=== PATIENT | male | born 1955 | race African-American/Black ===

== ENCOUNTER 2020-09-05 07:26 | Inpatient (IN) | payer OTHER ==
[~2020-09-05] VITALS: Ht 182.9 cm; Wt 59.4 kg
[2020-09-05 07:27] VITALS: BP 123/58
[2020-09-05 08:50] LABS: HEMATOCRIT 29.3 % (42.0-52.0); HEMOGLOBIN 9.4 gm/dL (14.0-18.0); MCH 29.7 pg (26.0-34.0); MCV 92.8 fL (80.0-100.0); RBC 3.16 mil/uL (4.50-6.00); RDW 16.4 % (10.5-14.5); WBC 18.9 thou/uL (4.0-11.0)
[2020-09-05 08:51] LABS: ANION GAP 5 mmol/L (7-16); BUN 51 mg/dL (7-18); CALCIUM 8.6 mg/dL (8.5-10.1); CHLORIDE 98 mmol/L (98-107); CO2 30 mmol/L (21-32); CREATININE 2.5 mg/dL (0.7-1.3); GLUCOSE 165 mg/dL (74-106); POTASSIUM 4.3 mmol/L (3.5-5.1); SODIUM 133 mmol/L (136-145)
[2020-09-05 09:03] LABS: ALBUMIN 1.7 g/dL (3.4-5.0); AMYLASE 59 U/L (25-115); DIRECT BILIRUBIN 0.1 mg/dL (<0.1-0.2); LIPASE 41 U/L (73-393); SGOT 35 U/L (15-37); SGPT 15 U/L (30-65); TOTAL BILIRUBIN 0.3 mg/dL (0.2-1.0); TOTAL PROTEIN 7.1 g/dL (6.4-8.2); TROPONIN-I <0.06 ng/mL (<0.06)
[2020-09-05 09:18] LABS: APTT 30.2 Seconds (24.5-32.8); INR 1.1; PROTIME 12.3 Seconds (9.3-11.4)
[2020-09-05] MEDS ORDERED: LIPITOR20 MG PO ×2 (09:38→09:39)
[2020-09-05] MEDS ORDERED: CARBIDOPA PO (10:26)
[2020-09-05] MEDS ORDERED: LEVODOPA PO (10:26)
--- NOTE | 2020-09-05 10:31 | NUR ---
SPOKE TO , PRAKASH, VERIFIED THAT SHE HAS A DURABLE POWER OF HOSPITALITY JOB TITLES FOR PATIENT. IS OK WITH PATIENT GETTING ADMITTED TO [facility]. UPDATED ON CURRENT CONDITION. VERBALIZED UNDERSTANDING, ENCOURAGED HER TO CALL BACK IF ANY FURTHER QUESTIONS.
[2020-09-05 11:21] LABS: ABSOLUTE NEUTROPHILS 16.3 thou/uL (1.4-8.2); ANISOCYTOSIS SLIGHT; LARGE PLATELETS OCCASIONAL; PLATELET COUNT 356 thou/uL (150-400); PLATELET ESTIMATE NORMAL; POIKILOCYTOSIS SLIGHT
--- NOTE | 2020-09-05 13:26 | EKG ---
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: JAVIER ODOM : 1955 Requested By: Moe Paz Order Number: [id number] MD: Danny Mckeon Measurements Intervals [place] Rate: 87 P: [place]: QRS: 59 QRSD: 79 T: 86 QT: 375 QTc: 451 Interpretive Statements Incomplete analysis due to missing data in precordial lead(s) NSR Low voltage, extremity leads Nonspecific T abnormalities, lateral leads Baseline wander in lead(s) V2 Missing lead(s): V6 No previous ECG available for comparison Electronically Signed On 09-05-2020 13:26:17 COMPETITIVE SHOPPER by Danny Mckeon [email or web address] <ELECTRONICALLY SIGNED> By: Danny Mckeon MD, [facility] 09/05/20 1326 09 0902 Danny Mckeon MD, [facility] /EPI
[2020-09-05 15:47] VITALS: BP 113/57
--- NOTE | 2020-09-05 15:58 | NUR ---
ATTEMPTED TO CALL REPORT, CALLED BUT LINE RANG UNTIL SOMEONE PICKED PHONE UP AND THEN PLACED ME ON HOLD.
--- NOTE | 2020-09-05 16:04 | NUR ---
ATTEMPTED TO CALL REPORT
[2020-09-05 16:25] VITALS: BP 114/58
[2020-09-05 16:47] VITALS: BP 115/64
--- NOTE | 2020-09-05 16:56 | NUR ---
FAXED CLINICAL UPDATES AND NEGATIVE COVID RESULT TO [facility]. [facility] P [phone]; FAX [phone]
--- NOTE | 2020-09-05 19:26 | NUR ---
PT ARRIVED FROM THE ED AT 1705 WITH THE ESCORT OF WINNIE ADDISON. PT ARRIVED TO THE UNIT WITH 0.45NS BAG HANGING WHICH WAS CONTINUED. PT STATED HAVING PAIN LEVEL OF 10 CONTINUOUSLY WITH THE BEST MANAGEABLE PAIN AT THE LEVEL OF 5. ALL WOUNDS WERE TAKEN PICTURE OF BY THIS RN, KERLIX/ABD/SALINE/TAPE WAS UTILIZED. WOUND PICTURES ARE IN THE CHART. PT WAS SET UP FOR DINNER, WAS TURNED, AND PAIN MEDICATION WAS ADMINISTERED. NEW ABX WAS HUNG, PT VOCALIZED GRATITUDE FOR THE CARE PROVIDED. RN SIGNING OFF
[2020-09-05 20:16] VITALS: BP 132/62
[2020-09-06 00:11] VITALS: BP 117/57
[2020-09-06 04:33] LABS: URINE BILIRUBIN NEGATIVE (Negative); URINE BLOOD 1+ (Negative); URINE CLARITY CLOUDY; URINE COLOR YELLOW; URINE GLUCOSE-RANDOM* NEGATIVE (Negative); URINE KETONES NEGATIVE (Negative); URINE NITRITE-REFLEX NEGATIVE (Negative); URINE PROTEIN (DIPSTICK) 2+ (Negative); URINE SPECIFIC GRAVITY 1.015 (1.005-1.035); URINE UROBILINOGEN 0.2 E.U./dl (0.2-1.0)
[2020-09-06 04:38] LABS: HEMATOCRIT 25.1 % (42.0-52.0); HEMOGLOBIN 8.2 gm/dL (14.0-18.0); MCH 30.1 pg (26.0-34.0); MCHC 32.5 g/dL (28.0-37.0); MCV 92.8 fL (80.0-100.0); RBC 2.71 mil/uL (4.50-6.00); RDW 16.2 % (10.5-14.5); URINE LEUKOCYTES-REFLEX 3+ (Negative); WBC 17.4 thou/uL (4.0-11.0)
[2020-09-06 04:41] LABS: BACTERIA-REFLEX >30 Many /HPF (None Seen); CASTS None Seen /LPF (None Seen); MUCUS 4-6 Moderate strn/LPF (None Seen); SQUAMOUS 0-3 Few /LPF (0-3); URINE WBC-REFLEX >25 Many /HPF (0-5)
[2020-09-06 04:42] LABS: CRYSTALS None Seen /LPF (None Seen); URINE RBC >20 Many /HPF (0-2)
[2020-09-06 04:55] LABS: ALBUMIN 1.4 g/dL (3.4-5.0); CREATININE 2.8 mg/dL (0.7-1.3); PHOSPHORUS 4.1 mg/dL (2.5-4.9); POTASSIUM 4.5 mmol/L (3.5-5.1)
[2020-09-06 05:05] VITALS: BP 116/53
--- NOTE | 2020-09-06 06:36 | NUR ---
PT MAKING POOR PROGRESS TOWARDS GOALS. NOTED CT ABD RESULTS FROM YESTERDAY. COLOSTOMY WITHOUT ANY STOOL OVERNIGHT. VERY MINIMAL (LESS THAN 5 ML) OF DRRK BROWNISH RED TINGED WATERY OUTPUT. NOTED HBG LEVEL THIS AM.
[2020-09-06 08:35] VITALS: BP 131/75
[2020-09-06 12:01] VITALS: BP 131/69
[2020-09-06 16:29] VITALS: BP 132/71
[2020-09-06 19:13] VITALS: BP 115/50
--- NOTE | 2020-09-06 21:48 | HC ---
[facility] [place] [address] CONSULTATION Name: FRANCOIS CHILDS Room #: 357-P [facility] IN M.R.#: [id number] Admission: 09/05/20 Attend Phys: Alexx Styles Discharge: Date of : 51 Report #: [id number] THIS REPORT FOR: cc: Erich Mackenzie MD,Erich Mackenzie,Jaime Khan MD ~ DATE OF SERVICE: 09/06/2020 INFECTIOUS DISEASE CONSULTATION REASON FOR CONSULTATION: I was asked to evaluate concerning pelvic wound infection. HISTORY OF PRESENT ILLNESS: The patient is a 64-year-old who transferred from [facility] with colostomy bleeding. Denied any fever, chills, or sweats. Does have stage 4 pressure wounds to his pelvis. He has history of colon cancer, status post colon resection and colostomy. He has end-stage renal disease, diabetes, major depressive disorder, Parkinson's disease, peripheral vascular disease, status post bilateral nujym-leg-ntqt amputations, and malnutrition. He was on no antibiotics prior to his admission. Evaluation noticed stage 4 wound with moderate amount of drainage and bone exposure. ALLERGIES: MORPHINE. MEDICATIONS: As noted on his SEP, now on Zosyn. PAST MEDICAL HISTORY: End-stage renal disease, DVT, PE, peripheral vascular disease, bilateral nldia-ori-dbep amputations, coronary artery disease, hypertension, hyperlipidemia, diabetes, colon cancer with partial colectomy, insomnia, chronic pain, pelvic pressure, decubiti, myopathy. FAMILY HISTORY: No report of tuberculosis. SOCIAL HISTORY: Smoker of cigarettes. No significant alcohol use. REVIEW OF SYSTEMS: A 14-point review of systems was negative other than what has been described above. PHYSICAL EXAMINATION: VITAL SIGNS: Afebrile and hemodynamically stable. GENERAL: He was alert and cooperative. He was very thin and weak. EXTREMITIES: Right upper extremity dialysis site without erythema or tenderness. Stage 4 pelvic wounds including hips and sacrum. EYES: Without scleral icterus. MOUTH: Without mucositis. [facility] [address] [place] [address] CONSULTATION Name: FRANCOIS CHILDS Room #: 357-P [facility] IN M.R.#: [id number] Admission: 09/05/20 Attend Phys: Alexx Styles Discharge: Date of : 51 Report #: [id number] NECK: Supple. No palpable adenopathy. CHEST: Clear. HEART: Regular, without murmur, gallop, or rub. ABDOMEN: Soft, nontender. Colostomy stoma without blood. Had formed stool present. GENITOURINARY: External genitalia without mass. RECTAL: Not performed. Bilateral rmgae-dhi-aetg amputation sites without erythema or skin breakdown. Mood without anxiety or depression. NEUROLOGIC: Cranial nerves intact. LABORATORY STUDIES: Reviewed. CT scan of the abdomen and pelvis reviewed, marked wall thickening and colitis with proctitis evident with rectal wall thickening as well. Sclerotic lesions in the lumbar spine, concerning for possible metastases. IMPRESSION: 1. Gastrointestinal bleed with evidence of colitis seen on CT scan, concerning for ischemia versus inflammatory bowel disease versus recurrent tumor versus infection. 2. Extensive pressure wounds with bony exposure. 3. End-stage renal disease. 4. Diabetes. 5. Malnutrition. RECOMMENDATIONS: Agree with current antibiotic use. Continue offloading and wound care. Maximize nutritional support. Await stool studies and further GI workup. <ELECTRONICALLY SIGNED> By: Jaime Mackenzie MD 09/06/208 00 26 Jaime Mackenzie MD /nt
[2020-09-07 04:21] VITALS: BP 129/58
--- NOTE | 2020-09-07 06:51 | NUR ---
PROGRESS PT A/O X4 REPOSITIONED Q2HRS, DRESSINGS TO BOTH HIPS AND SACRUM INTACT. COLOSTOMY WITH MINIMAL BLOODY OUTPUT NO STOOL NOTED. ALVARADO INTACT DRAINING DARK PHILLIP URINE. TESSIO TO RIGHT CHEST INTACT HAD DIALYSIS TUESDAY. USUAL SCHEDULE IS . HYDROCODONE GIVEN FOR PAIN WITH EFFECT PT SLEPT MOST OF NIGHT. IV ANTIBIOTICS ADMINISTERED ORDERED CONTINUE POC.
--- NOTE | 2020-09-07 11:57 | NUR ---
PT STATED TO RN THAT HE WANTS HIS PHYSICIANS TO HAVE A SERIOUS, TRUTHFULL CONVERSATION WITH HIM IN REGARDS TO OUTLOOK WITH EVERYTHING HE HAS GOING ON. PT STATES HE HAS HAD A LOT OF PAIN FOR A LONG TIME NOW AND THAT HE AND HIS BODY ARE TIRED. PT STATES HE WILL HAVE PROCEEDURES DONE IF THEY WILL FIX/CURE A PROBLEM BUT HE DOES NOT WANT TO HAVE THINGS DONE IF THEY ARE JUST TO GET HIM BY AND ARE PROLONGING A PROBLEM. RN LISTENED AND PT STATES HE PLANS ON GI PROCEEDURE IN AM BUT THINKS HE WOULD LIKE HIS TEAM OF PHYSICIANS TO DISCUSS HIS OVERALL OUTLOOK WITH HIM SO THAT HE CAN MAKE SOME DECISIONS. RN WILL PLACE CONSULT TO CASE MANAGEMENT AT THIS TIME TO DISCUSS ADVANCED DIRECTIVE.
[2020-09-07 16:27] VITALS: BP 134/73
--- NOTE | 2020-09-07 18:20 | NUR ---
PLAN IS FOR PT TO HAVE GI PROCEEDURE TOMORROW. PT STARTED ON GOLYTELY AT 1800. PT IS CURRENTLY WORKING ON DRINKING PREP. WILL CONTINUE TO MONITOR COLOSTOMY FOR OUTPUT. PT IS HAVING LOTS OF PAIN IN WOUND AREA ON BUTTOCKS AND SACRUM. PT REPOSITIONED FREQUENTLY, GREATER THAN Q2 HOURS. PT ALERT AND CALLS APPROPRIATELY TO ASK TO BE TURNED FREQUENTLY. PT WAS ON CLEAR DIET TODAY AND TOLERATED WITH OUT DIFFICULTY. PT PROGRESSING VERY SLOWLY TOWARDS GOALS.
[2020-09-07 19:29] VITALS: BP 124/68
[2020-09-08 02:05] LABS: HEP B SURFACE Ab(ANTI-HBS Reactive (()); HEPATITIS B SURFACE AG Negative (Negative)
[2020-09-08 03:29] VITALS: BP 120/66
[2020-09-08 05:16] LABS: HEMATOCRIT 25.2 % (42.0-52.0); MCH 29.3 pg (26.0-34.0); MCHC 31.6 g/dL (28.0-37.0); MCV 92.5 fL (80.0-100.0); RBC 2.73 mil/uL (4.50-6.00); RDW 15.6 % (10.5-14.5); WBC 16.4 thou/uL (4.0-11.0)
--- NOTE | 2020-09-08 07:35 | EKG ---
[place] [address] [facility] [place] [address] ELECTROCARDIOGRAM REPORT Name: FRANCOIS CHILDS Room #: 357-P ADM IN M.R.#: [id number] Admission: 09/05/20 Attend Phys: Alexx Styles Discharge: Date of : 51 Report #: [id number] [facility] ED Test Date: 2020-09-05 Test Time: 09:20:59 Pat Name: FRANCOIS CHILDS Department: Room: 357 Gender: M Assistant Executive Housekeeper: JAVIER ODOM : 1955 Requested By: Alexx Styles Order Number: [id number] MD: Danny Mckeon Measurements Intervals [place] Rate: 87 P: 84 MS: 162 QRS: 57 QRSD: 82 T: 87 QT: 373 QTc: 449 Interpretive Statements Sinus rhythm Low voltage, extremity leads Nonspecific T abnormalities, lateral leads Compared to ECG 09/05/2020 09:02:44 No significant changes Electronically Signed On 09-08-2020 7:35:14 SNUFF DRIER by Danny Mckeon [email or web address] <ELECTRONICALLY SIGNED> By: Danny Mckeon MD, [facility] 09/08/20 0735 9 9 Danny Mckeon MD, [facility]ACC /EPI
--- NOTE | 2020-09-08 07:51 | NUR ---
PROGRESS PT A/O X4 VSS, ON ROOM AIR RIGHT CHEST TESSIO CATHETER, RF SL LEAKING HAD TO REMOVE THIS AM, ATTEMPTED TO REPLACE IV X 3 WITHOUT SUCCESS. HYDROCODONE GIVEN FOR PAIN WITH MILD EFFECT. FENTANYL ORDER OBTAINED GAVE SLIGHTLY MORE RELIEF BUT PT NEEDS IV STARTED FIRST. COLOSTOMY OUTPUT APPROX 600 TO 800CC'S OF SOFT MARROON UNFORMED STOOL. VOIDING PER URINAL MINIMAL OUTPUT SPILLED MOST ON BED. DRESSINGS TO BOTH HIPS AND BOTH BUTTOCKS INTACT SLIGHT DRAINAGE NOTED. PT UNABLE TO DRINK GOLYTELY HAD 6 CUPS AND JUST TOOK APPROXIMATE 150CC'S INSISTED HE WOULD KEEP TRYING BUT REFUSED EACH TIME IT WAS OFFERED. DIALYSIS NURSE IN TO GIVE DIALYSIS.
[2020-09-08 08:53] VITALS: BP 153/65
[2020-09-08 11:03] VITALS: BP 113/65
--- NOTE | 2020-09-08 14:58 | NUR ---
INITIAL ASSESSMENT: Received consult. KAN reviewed chart and spoke with nursing and attending physician. Pt was admitted from [facility] due to GI bleed. Pt had negative COVID test on 09/05. Pt had EGD earlier today after dialysis. KAN met with pt at bedside. Introduced role of SW. Pt is alert/orientated. Pt states he was at [facility] for less than 24 hours. Pt unable to recall name of previous facility. Pt with hx of bilateral AKA and has sacral decubitus ulcers. Pt asked SW to contact his , Theresa. SW left voice message for Theresa ([phone]). Pt normally lives at home with his and goes to outpatient dialysis at [facility]. KAN faxed clinical info to [facility] for review. Spoke with Halle in admissions, who states pt was admitted to [facility] from [facility]. [facility] is able to accept pt back when medically stable for discharge. Will need insurance authorization for skilled placement. KAN is following to assist as needed with discharge planning.
--- NOTE | 2020-09-08 18:18 | NUR ---
assumed care 0700. Dialysis completed 1030, 1.5 liters off.. pt to GI lab 1230. dressings on buttocks changed prior to procedure as well as enema. returned from procedure 1415 vss. pain treatment adjsuted to better meet needs. afebrile. no bm. progressing in nursing plan of care.
[2020-09-08 19:39] VITALS: BP 127/80
[2020-09-09 03:22] VITALS: BP 131/66
[2020-09-09 07:14] VITALS: BP 122/57
[2020-09-09 14:56] VITALS: BP 103/54
--- NOTE | 2020-09-09 15:09 | NUR ---
KAN reviewed chart and spoke with nursing and attending physician. Pt to have SBFT today per GI. KAN faxed clinical updates to [facility] for review. Updated Halle and Dhaval in admissions. KAN left two voice messages for pt's to confirm discharge plan. PT/OT evals ordered today. Will need insurance authorization for skilled level of care. KAN is following to assist as needed with discharge planning.
--- NOTE | 2020-09-09 18:29 | NUR ---
ASSUEMED CARE 0700. UNINTENTIALLY SERVED LUNCH TODAY. SO PLAN ON NPO @ 0000 AND SMALL BOWEL SERIES TOMORROW PER DR. MAGANA. COLOSTOMY CONTENTS STILL BLOODY. PAIN BETTER MANAGED TODAY PER PT. PT EDUCATED ON DIET AND BEING NPO UNTIL AFTER GI PROCERDURE.
[2020-09-09 20:59] VITALS: BP 142/74
--- NOTE | 2020-09-09 21:28 | NUR ---
pt took his hydromorphone iv then was quiet and looked as if to be resting with eyes closed. Now at this time he is reporting his pain level at a 12/10.
--- NOTE | 2020-09-10 03:50 | NUR ---
DRESSINGS CHANGED, PT TURNED. NPO SINCE MIDNIGHT FOR SMALL BOWEL F/U THIS AM. THE PAIN MEDICATION HELPS HIS PAIN, BUT HE PREFERS TO LAY ON HIS LEFT SIDE. CAREPLAN REVIEWED. NO CONCERNS VOICED.
[2020-09-10 04:06] VITALS: BP 121/48
[2020-09-10 05:49] LABS: HEMOGLOBIN 6.9 gm/dL (14.0-18.0); WBC 17.7 thou/uL (4.0-11.0)
[2020-09-10 05:50] LABS: HEMATOCRIT 21.6 % (42.0-52.0); MCH 29.6 pg (26.0-34.0); MCV 92.3 fL (80.0-100.0); RBC 2.34 mil/uL (4.50-6.00); RDW 15.3 % (10.5-14.5)
[2020-09-10 08:45] VITALS: BP 131/50
--- NOTE | 2020-09-10 12:40 | NUR ---
KAN reviewed chart and spoke with nursing and attending physician. Pt to have blood transfusion today and SBFT per GI. KAN spoke with pt's , Theresa, via phone to provide update and confirmed discharge plan is for pt to return to [facility] when medically stable. KAN faxed updated clinical info to [facility] for review. Will fax therapy evals when available. Pt to have dialysis today. KAN updated Halle in admissions at [facility]. KAN is following to assist as needed with discharge planning.
--- NOTE | 2020-09-10 14:57 | NUR ---
OSTOMY CARE NOTE; CALLED TO SEE PT, ARRIVED ON FLOOR AFTER GI SBFT W/ OSTOMY POUCH LEAKING, STOMA PINK VIABLE, FLAT W/ SKIN SURFACE, PERISTOMAL SKIN INTACT, NEW POUCH PAMELA 2 PIECE SYSTEM APPLIED W/ ADAPT RING UNDER WAFER, PT COOPERATIVE, AWAKE, SUGGESTED TO USE HIGH OUTPUT POUCH IF STOOL CONTS TO BE SO LIQ AND LARGE AMT. SUPPLIES LEFT AT BS RECOMMENDATIONS; CHANGE POUCH Q 3-5 DAYS AND PRN, EMPTY PRN, SWITCH TO HIGH OUTPUT IF LARGE AMT LIQ STOOL NOTED SENIOR CYTOTECHNOLOGIST AWARE
[2020-09-10 15:32] VITALS: BP 144/78
[2020-09-10 18:09] VITALS: BP 106/55; BP 133/60
--- NOTE | 2020-09-10 18:33 | NUR ---
BLOOD TRANSFUSION STARTED AT 1813, 15MINS IN THE ROOM COMPLETED. VITAL SIGNS STABLE, NO REACTION NOTED. PT COLOSTOM BAG CHANGED, WOUND DRESSING CHANGE COMPLETED, PICURES TAKEN. FULL BED CHANGE DONE. FALL PRECAUTIONS IN PLACE. CALL LIGHT IN REACH. DENIES ANY NEEDS AT MOMENT
[2020-09-10 19:30] VITALS: BP 134/63
[2020-09-11 03:30] VITALS: BP 110/61
--- NOTE | 2020-09-11 03:41 | NUR ---
DRESSING CHANGE COMPLETED THIS SHIFT. HE IS COOPERATIVE AD CALM. PRODUCT DEVELOPMENT ASSISTANT GAVE HIM A BACK RUB WHILE DRESSING CHANGE DONE. THIS HELPED HIM TOLERATE THE CARES MUCH BETTER. NO CONCERNS VOICED.
[2020-09-11 07:40] LABS: HEMATOCRIT 24.7 % (42.0-52.0)
[2020-09-11 08:29] VITALS: BP 118/53
[2020-09-11] MEDS ORDERED: AUGMENTIN 875-1 EACH PO (08:51)
[2020-09-11] MEDS ORDERED: PROTONIX 20 MG20 M1 PO (08:51)
[2020-09-11] MEDS ORDERED: MIRALAX17 GM PO (08:51)
[2020-09-11] MEDS ORDERED: OXYCODONE HCL 55 MG PO (08:52)
--- NOTE | 2020-09-11 09:54 | NUR ---
KAN reviewed chart. Finalized discharge orders and summary completed by attending physician. KAN faxed clinical/therapy updates to [facility] for review. Will need insurance authorization for post-acute placement. Chart copy requested. KAN is following to assist as needed with discharge planning.
--- NOTE | 2020-09-11 15:07 | PATH ---
[facility] [address] [place] [address] PATHOLOGY RPT PROCEDURE Name: FRANCOIS CHILDS Room #: 357-P ADM IN M.R.#: [id number] Admission: 09/05/20 Date of : 51 Discharge: Report #: [id number] Path Case #: [id number] [facility] Accession Number: [id number] . 01 Material submitted: . gastrointestinal site - ANTRAL R/O H.PYLORI . 01 Clinical history: . GI BLEED HIATAL HERNIA, GASTRITIS, COLITIS . 02 Diagnosis: Gastric mucosa, antral, rule out H. pylori, endoscopic biopsy: - Mild reactive gastropathy with focal intestinal metaplasia. - Negative for atrophy. - Negative for Helicobacter pylori (properly controlled immunohistochemical stain performed). (IUV:miniature set constructor; 09/11/2020) MBR 09/11/2020 1200 Local . 02 Comment: The biopsy tissue might represent pyloric outlet mucosa. Please correlate clinically. (IUV:miniature set constructor; 09/11/2020) . 02 Electronically signed: . Tennille Bro MD, Pathologist NPI- [id number] . 01 Gross description: . The specimen is received in formalin, labeled "Francois Childs, biopsy antral". Received is a segment of pale mcfarlane tissue measuring 0.4 cm in maximum dimensions. The specimen is submitted entirely in cassette A1. (CAA; 09/10/2020) QAC/QAC 09/10/2020 1237 Local . 02 Pathologist provided ICD-10: K31.9 . 02 CPT . 388277, [id number] Specimen Comment: A courtesy copy of this report has been sent to [phone] Specimen Comment: Report sent to ,, Performed at: [address] [id number] MD Shantanu Mccall MD Phone: [phone] [facility] [place] [employer] [place] [address] PATHOLOGY RPT PROCEDURE Name: FRANCOIS CHILDS Room #: 357-P [facility] IN M.R.#: [id number] Admission: 09/05/20 Date of : 51 Discharge: Report #: [id number] Path Case #: [id number] Performed at: 02 [facility] [employer] [place], [place] [id number] MD Tennille Bro MD Phone: [phone]
--- NOTE | 2020-09-11 15:50 | NUR ---
CARE ASSUMED AT 0700, POT ALERT ORIENTED X4, DENIES ANY PAIN, NAUSEA AND VOMITTING. PT ON ROOM AIR, NO SIGNS OF DISTRESS NOTED. PT COMPLAINS OF PAIN IN HIS SACRUM AREA DUE TO MULTIPLE WOUNDS, PAIN MED GIVEN PER ORDER. WOUND CARE COMPLETED. COLOTOMY IN PLACE. ORDER FOR D/C PLACE, CASE MGT WORKING ON D/C PAPERWORK. FALL PRECAUTIONS PLACE. WIWLL CONTINUE TO MONITOR.
[2020-09-11 16:16] VITALS: BP 142/71
[2020-09-11 20:05] VITALS: BP 142/63
[2020-09-12 04:39] VITALS: BP 96/55
--- NOTE | 2020-09-12 07:37 | NUR ---
Pt. didn't sleep much. Calls to be turned frequently. Medicated for pain with some relief. Complete bed bath given and wound care done at HS. Bed alarm on for safety.
[2020-09-12 07:42] VITALS: BP 86/66
[2020-09-12 08:47] LABS: HEMATOCRIT 26.4 % (42.0-52.0); HEMOGLOBIN 8.5 gm/dL (14.0-18.0)
[2020-09-12 09:28] VITALS: BP 105/66; BP 106/60
--- NOTE | 2020-09-12 09:49 | NUR ---
1 unit of blood given with dialysis per dr. cassie craig
[2020-09-12 10:10] VITALS: BP 123/46; BP 86/49
--- NOTE | 2020-09-12 13:19 | NUR ---
KAN reviewed chart and spoke with nursing and attending physician. Pt is having a colonoscopy today per GI. KAN faxed updated clinical and therapy notes to [facility] for review. Awaiting insurance authorization for pt to continue his skilled stay at [facility]. KAN updated Halle in admissions at [facility] who states they are able to accept pt back when insurance auth is obtained. The facility is able to accept pt back over the weekend if pt is ready for discharge and they have insurance auth. Staff to contact Halle to coordinate discharge. KAN spoke with pt's , Theresa, via phone to provide update. Theresa is aware and agreeable with discharge plan. KAN is following to assist as needed with discharge planning. [facility]-- Admissions-[place]: [phone]
[2020-09-12 16:40] VITALS: BP 112/56
--- NOTE | 2020-09-12 18:16 | NUR ---
CALLED PT A COUPLE TIMES TO UPDATE HER ABOUT PT CARE, NO ANSWER
[2020-09-12 18:32] LABS: HEMATOCRIT 32.7 % (42.0-52.0)
[2020-09-12 18:33] LABS: HEMOGLOBIN 10.6 gm/dL (14.0-18.0)
[2020-09-12 21:12] VITALS: BP 140/78
[2020-09-13 01:22] LABS: HEMATOCRIT 33.3 % (42.0-52.0); HEMOGLOBIN 10.7 gm/dL (14.0-18.0); MCH 29.5 pg (26.0-34.0); MCHC 32.3 g/dL (28.0-37.0); MCV 91.6 fL (80.0-100.0); RBC 3.64 mil/uL (4.50-6.00); RDW 14.8 % (10.5-14.5); WBC 16.6 thou/uL (4.0-11.0)
[2020-09-13 03:57] VITALS: BP 140/71
[2020-09-13 07:28] VITALS: BP 145/67
--- NOTE | 2020-09-13 07:39 | NUR ---
Q2 TURNS AND PAIN MANAGEMENT WERE POC FOR SHIFT. VSS OVERNIGHT, AND IVPB ANTIBIOTICS. PT CAN USE CALL LIGHT TO REQUEST NEEDS.
--- NOTE | 2020-09-13 16:33 | NUR ---
assumed care of pt at 0700. pt alert and oriented, in no acute distress. breathing comfortably on room air. bloody stool draining into ostomy bag. dressings changed per order. turned q2h and prn. in room throughout day. pt calls appropriately as needed. waiting on biopsy and surgery eval. vitals stable at this time. wcm.
[2020-09-13 19:17] VITALS: BP 173/72
[2020-09-14 05:22] VITALS: BP 148/71
[2020-09-14 05:43] LABS: HEMOGLOBIN 10.7 gm/dL (14.0-18.0); MCH 29.5 pg (26.0-34.0); MCHC 32.4 g/dL (28.0-37.0); MCV 91.2 fL (80.0-100.0); RBC 3.62 mil/uL (4.50-6.00); RDW 14.9 % (10.5-14.5); WBC 14.8 thou/uL (4.0-11.0)
--- NOTE | 2020-09-14 07:56 | NUR ---
FOLLOWING POC WITH IVPB ANTIBIOTICS AND Q2 TURNS. LOW LOSS AIR PUMP IN PLACE. PT REQUEST PAIN MEDICATION X2 OVERNIGHT. HOURLY ROUNDING.
[2020-09-14 07:59] VITALS: BP 131/61
[2020-09-14 16:35] VITALS: BP 127/60
--- NOTE | 2020-09-14 20:06 | NUR ---
PATIENT REFUSED WOUND CARE THREE TIMES TODAY. HE STATED HE WAS TOO TIRED AND WEAK FOR IT. ASK NURSE TO COME BACK SOME OTHER TIME. RISK FOR NOT DRESSING WOUND FOR TOO LONG EXPLAINED TO PATIENT. HE WILL ALSO BE HAVING SURGERY TOMORROW AND STARTED ON GO [place]. HE HAS NOT BEEN COMPLAINT WITH DRINKING [employer]ARGET[employer] OF TIME OF THIS WRITING HE HAS ONLY DRANK HALF OF CUP. ENCOURAGED AND RISKS OF NOT HAVINT SURGERY DONE DUE TO LIMITED VISIBILITY EXPLAINED TO PATIENT. HE IS ALERT ORIENTED X4.
[2020-09-14 20:16] VITALS: BP 126/53
[2020-09-15] VITALS (16 sets, daily range): BP systolic 89–141; BP diastolic 49–698
--- NOTE | 2020-09-15 07:34 | NUR ---
PROGRESS PT A/O X4 ON BEDREST DRINKING GOLYTELY FOR PREP FOR EXP LAP TODAY. DRANK 2 CUPS LAST NIGHT AND NO MORE. COLOSTOMY DRAINING BLOODY STOOLS, BLOOD AND CLOTS OF BLOOD, DRAINAGE BAG CLOTTED OFF SO COLOSTOMY BAG RINSED WITH STERILE WATER TO REMOVE CLOTS AND NEW DRAINAGE BAG APPLIED. TAKING OXYCODONE FOR PAIN RATING IT A 6 TO 10. CONTINUE PLAN OF CARE.
--- NOTE | 2020-09-15 09:51 | HC ---
[facility] [address] [place] [address] CONSULTATION Name: FRANCOIS CHILDS Room #: 357-P [facility] IN M.R.#: [id number] Admission: 09/05/20 Attend Phys: Alexx Styles Discharge: Date of : 51 Report #: [id number] THIS REPORT FOR: cc: Erich Mackenzie MD, Christopher B. MD Althoff, Jeffrey R. MD ~ DATE OF SERVICE: 09/08/2020 CHIEF COMPLAINT: Sacral and ischial pressure ulcerations. HISTORY OF PRESENT ILLNESS: This is a 64-year-old male patient who was transferred here from [facility] for evaluation of GI bleeding. He has had a previous colostomy. He has sacral and ischial pressure ulcerations. I have been asked to see him with regard to wound care. ALLERGIES: MORPHINE. CURRENT MEDICATIONS: Include Augmentin, atorvastatin, oxycodone, pantoprazole, polyethylene glycol, carbidopa/levodopa. PAST MEDICAL HISTORY: Prior history of hypertension, hyperlipidemia. He has had prior bilateral above-knee amputations. He has a history of a stage 4 pressure ulcer to the sacral and bilateral ischial regions. He has had a history of colon cancer, requiring partial colectomy. He has a current colostomy. He has a history of type 2 diabetes mellitus, hypertension, hyperlipidemia, and coronary artery disease. FAMILY HISTORY: Noncontributory. SOCIAL HISTORY: Negative for current alcohol or tobacco use. Previous smoker. REVIEW OF SYSTEMS: CONSTITUTIONAL: The patient denies fever, chills or weight loss. NEUROLOGICAL: The patient denies focal weakness, numbness or tingling. EYES: The patient denies visual changes, redness, or drainage. ENT: The patient denies earache, nasal drainage or sore throat. CARDIOVASCULAR: The patient denies chest pain, palpitation. PULMONARY: The patient denies cough or shortness of breath. GASTROINTESTINAL: The patient has colostomy. He is aware that he has had some GI bleeding. DERMATOLOGIC: The patient is aware of the ulcerations to both his right and left ischial region as well as the sacral region. PHYSICAL EXAMINATION: VITAL SIGNS: At this time include temperature 35.8, pulse 104, respiratory rate [address] [address] CONSULTATION Name: FRANCOIS CHILDS Room #: 357-P [facility] IN ..#: [id number] Admission: 09/05/20 Attend Phys: Alexx Styles Discharge: Date of : 51 Report #: [id number], blood pressure 113/65. GENERAL: This is a chronically ill-appearing male patient who appears to be in minimal distress. HEENT: Head normocephalic. Nose and throat are clear. NECK: Supple. LUNGS: Diminished. ABDOMEN: Soft. Colostomy is in place. Pelvic region demonstrates stage 4 pressure ulceration to the sacrum and bilateral ischial regions. They are relatively healthy, clean and granulating. There is no evidence of overt infection. EXTREMITIES: Lower extremities demonstrate healed above-knee amputation sites. LABORATORY DATA: Include sodium 134, potassium 4.2, chloride 99, CO2 of 29, BUN 54, creatinine 2.8, glucose 132. Albumin is very low at 1.4. White blood cell count of 16.1 with a hemoglobin of 8.0. CLINICAL IMPRESSION: 1. Stage 4 pressure ulcerations to the left and right ischial tuberosities. 2. Stage 4 pressure ulcer of the sacrum. 3. History of colon cancer, status post colostomy. 4. Prior bilateral above-knee amputations that appear to be intact. 5. Type 2 diabetes mellitus. 6. Hypertension. 7. Hyperlipidemia. 8. Severe protein-calorie malnutrition. RECOMMENDATIONS: At this point in time, we will recommend a quarter strength Dakin's moist gauze dressings to the sacral and ischial pressure ulcerations. He is currently undergoing further evaluation for his GI bleeding. Continue with ongoing medical management of his other underlying medical problems. The patient would benefit from aggressive nutritional support to maximize wound healing. I appreciate being asked to see him in consultation. <ELECTRONICALLY SIGNED> By: Les Hairston MD 09/15/20 0951 [id number] Les Hairston MD /nt
[2020-09-15 10:08] LABS: CALCIUM 8.2 mg/dL (8.5-10.1); CREATININE 2.8 mg/dL (0.7-1.3); POTASSIUM 4.6 mmol/L (3.5-5.1)
--- NOTE | 2020-09-15 12:56 | NUR ---
0930 PT TAKEN DOWN FOR SURGERY.
--- NOTE | 2020-09-15 13:14 | NUR ---
KAN reviewed chart and spoke with nursing and attending physician. Pt having surgery today. KAN provided update to Halle in admissions at [facility]. Facility has obtained insurance authorization. Halle to find out how long authorization is valid. Plan is for pt to return to [facility] when medically stable. KAN is following to assist as needed with discharge planning.
--- NOTE | 2020-09-15 16:04 | NUR ---
1445 PT BACK FROM SURGERY, VITALS SIGNS STABLE. PT ALERT AND ORIENTED X4, LEFT COLOSTOMY HAS BEEN SURGICALLY CLOSED AND NOW HAS A RIGHT COLOSTOMY WITH ABDOMINAL INCISION BY WITH WOUND VAC. PAIN MEDICATION GIVEN FOR PAIN. SACRUM WOUND DRESSING IN PLACE. PT IS CURRENTLY HAVING DIALYSIS RIGHT NOW.WILL COTNINUE TO MONITOR PT VITALS SIGNS. FALL PRECAUTIONS IN PLACE. WILL CONTINUE MONITOR.
--- NOTE | 2020-09-15 18:31 | O ---
[facility] [place] [address] OPERATIVE REPORT Name: FRANCOIS CHILDS Room #: 357-P [facility] IN M.R.#: [id number] Admission: 09/05/20 Attend Phys: Alexx Styles Discharge: Date of : 51 Report #: [id number] THIS REPORT FOR: cc: Erich Mackenzie MD, Christopher B. MD Soliman,John Milligan MD FACS ~ DATE OF SERVICE: 09/15/2020 PREOPERATIVE DIAGNOSES: 1. 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 2. Indwelling diverting loop descending colostomy. 3. Stage 4 sacrogluteal and left hip decubitus wounds. 4. Severe protein-calorie malnutrition. 5. End-stage renal disease, on hemodialysis. 6. Hypertension. 7. Diabetes mellitus. POSTOPERATIVE DIAGNOSES: 1. 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 2. Indwelling diverting loop descending colostomy. 3. Stage 4 sacrogluteal and left hip decubitus wounds. 4. Severe protein-calorie malnutrition. 5. End-stage renal disease, on hemodialysis. 6. Hypertension. 7. Diabetes mellitus. PROCEDURES PERFORMED: 1. Exploratory laparotomy with takedown and resection of indwelling loop descending colostomy. 2. Formal left hemicolectomy with end proximal transverse colostomy. 3. Placement of topical wound VAC device (Prevena). 4. Excisional debridement of skin, subcutaneous tissue, muscle and bone from a stage 4 sacral decubitus wound ultimately measuring 12.5 x 8 cm in dimension (100 square cm). Preoperative wound measurements were similar as the overall dimensions of the wound did not change substantially. 5. Excisional debridement of skin, subcutaneous tissue, muscle and bone from a right ischial decubitus wound ultimately measuring 7.5 x 6 cm in dimension (45 square cm). Preoperative wound measurements did not differ substantially as the overall dimensions of the wound did not change substantially. 6. Excisional debridement of skin, subcutaneous tissue, muscle and bone from a stage 4 left ischial decubitus wound, ultimately measuring 7 x 6 cm in dimension (42 square cm). Preoperative wound measurements were similar as the overall dimensions of the wound did not change substantially. 7. Excisional debridement of skin, subcutaneous tissue, muscle and bone from a stage 4 left hip decubitus wound ultimately measuring 5.5 x 2.5 cm in dimension [address] [address] OPERATIVE REPORT Name: CHILDSFRANCOIS Carrillo Room #: 357-P [facility] IN M.R.#: [id number] Admission: 09/05/20 Attend Phys: Alexx Styles Discharge: Date of : 51 Report #: [id number] (13.75 square cm). Preoperative wound measurements did not differ substantially as the overall dimensions of the wound did not change substantially. 8. Total surface area of all wounds debrided down to bone, equals 200.75 square cm. SURGEON: John Hansen MD OXYGEN SYSTEM TESTER: ZEE Holden. ANESTHESIA: General endotracheal anesthesia. ESTIMATED BLOOD LOSS: 50 mL. COMPLICATIONS: None appreciated. SPECIMENS: 1. Descending loop colostomy to pathology. 2. Remaining left hemicolectomy to pathology. 3. Excess colostomy tissue from proximal transverse colon to pathology. COMPLICATIONS: None appreciated. 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 Unfortunately, the patient has had continued bleeding per his distal loop colostomy and underwent repeat endoscopy showing a near obstructing mass at this juncture and after thorough consultation with the patient, he has elected for formal resection to prevent complete obstruction. In addition, the patient shows evidence of fibrinous slough and debris throughout the bed of each dependent decubitus wound requiring further debridement today. DESCRIPTION OF PROCEDURE: After explaining the risks, benefits and alternatives of the procedure and obtaining consent, the patient was brought to the operating room and placed supine on the operating room table. After conducting a thorough timeout procedure verifying correct patient and procedure, the patient was given general endotracheal anesthesia. He did not have SCDs placed as he has bilateral lower extremity amputations and he was already on an inpatient regimen of IV antibiotic therapy, which is all in line with the SCIP protocol. The patient was now positioned in the prone position on the operating room table with all pressure points appropriately padded and his sacrogluteal wounds were prepped and draped in a standard surgical sterile fashion. I now proceeded to debride all nonviable skin, subcutaneous tissue and muscle/fascia from the periphery of the wound carried down to the bed of the wound where there was bony [address] [address] OPERATIVE REPORT Name: FRANCOIS CHILDS Room #: 357-P [facility] M.R.#: [id number] Admission: 09/05/20 Attend Phys: Alexx Styles Discharge: Date of : 51 Report #: [id number] in each of the 4 wounds with resultant measurements as delineated above. The [place] REI ultrasonic debridement tool was now used to remove all remaining nonviable tissue and biofilm from the entirety of each wound and hemostasis was assured with electrocautery. The wounds were then packed with sterile saline soaked Kerlix gauze, dressed with 4 x 4s, ABDs and Medipore tape completing the debridement portion of the procedure. The patient was now positioned back in the supine position on the operating room table where I proceeded to sew closed his loop descending colostomy with a #2 silk suture in pursestring fashion. The patient's abdomen was now prepped and draped in the standard surgical sterile fashion. A #10 bladed scalpel was used to create a longitudinal midline incision from the subxyphoid location and suprapubic location, carried to the left of the umbilicus. Electrocautery was used to carry this down through skin and subcutaneous tissues to ensure hemostasis until I arrived upon the fascia, which was scored vertically. I was then able to place a finger into the abdomen and open the entire fascial incision in a controlled setting to prevent injury to the underlying structures from electrocautery burn. Once I had the entirety of the abdominal domain open, I was able to easily palpate the large bulky cancerous mass in the left upper quadrant. As this was going to necessitate a takedown of the colostomy, I proceeded to make a vertically oriented elliptical incision around the colostomy. This was done using a #10 bladed scalpel and electrocautery was used to carry this down through skin and subcutaneous tissues where I proceeded to detach the colostomy from the fascial attachments. I was then able to pull the colostomy through into the abdomen and using Irizarry retractors pulled back the abdominal wall and I was able to resect the colostomy using 2 firings of the VANESSA blue load 75 mm stapler after creating windows in the mesentery on either side of the loop colostomy. The colostomy was then elevated and the EnSeal X1 advanced energy device was used to transect the mesentery for complete hemostasis and the colostomy was passed off the field as specimen. I now proceeded to mobilize the entire left colon along the white line of Toldt using electrocautery. An appropriate location in the mid transverse colon was selected at which location, a window was made in the mesentery with electrocautery and this was transected using another firing of the VANESSA blue load 75 mm stapler. The proximal transverse colon was then placed in the right upper quadrant and I proceeded to use the EnSeal X1 advanced energy device to transect mesentery and gastrocolic ligament from the transverse colon ensuring it did not encroach upon the gastric tissues to prevent injury from thermal burn. Once I had dissected distally along the transverse colon to the splenic flexure, attention was turned back to the descending colon where I proceeded to mobilize the colon medially and take down the mesentery with the EnSeal advanced energy device proximally. Care was taken to seat this as low on the mesentery as possible to achieve adequate marianna sampling. At the location of the splenic flexure, there was a very firm bulky mass with tattooing from the endoscopy and there were significant fibrotic changes in this area. Ultimately, I was able to elevate this off of the perinephric tissues in order to transect it at its base [address] [address] OPERATIVE REPORT Name: FRANCOIS CHILDS Room #: 357-P [facility] M.R.#: [id number] Admission: 09/05/20 Attend Phys: Alexx Styles Discharge: Date of : 51 Report #: [id number] using the Oximityeal advanced energy device and free the entirety of the specimen. This was then passed off the field with a suture marking the distal staple line. The entire abdomen was copiously irrigated and hemostasis was assured. I did place Gary in the left upper quadrant pericolic gutter for long-term hemostasis. I now closed the previous colostomy site using #1 PDS suture in standard running fashion with anterior fascial bites as this was infraumbilical in nature. A 3-0 Vicryl was used to close the peritoneum and prevent any potential incarcerated hernia within the preperitoneal plane. I now selected a location in the right mid abdomen for the end colostomy. This was grasped with a Rosemary clamp and a skin defect was made using a #10 bladed scalpel. This was dissected down through skin and subcutaneous tissues with electrocautery until I arrived upon the fascia, at which point a cruciate incision was made. A tonsil clamp was then used to penetrate intraabdominally and this was dilated to 2 fingerbreadths whereby a [place] clamp was placed through this defect and used to grasp the staple line of the proximal and transverse colon. This was then pulled up through the abdominal wall, ensuring no twisting and orientation was preserved. I now closed the midline fascial wound using looped #1 PDS in standard running fashion, which was tied down in the subxiphoid location. Skin julien were then applied to the midline wound as well as the previous colostomy site and the wounds were then covered. I now proceeded to use curved Edmondson scissors to cut off the stapled end of the proximal transverse colon and this was passed off the field as specimen due to the cancerous aspect of the pathology. I then matured the colostomy in standard Sask[place] fashion using imbricating sutures of 3-0 Vicryl at the 12, 3, 6, and 9 o'clock positions grabbing full thickness bites of colon anchoring it to the seromuscular layer of the colon deeper and to the dermis. Each of the resultant 4 quadrants were then closed at the mucocutaneous juncture using short runs of 3-0 Vicryl in standard fashion. Digital finger intubation showed it patent to a subfascial level. A sterile colostomy appliance was then applied as well as a Prevena topical wound VAC device completing the procedure. At the end of the procedure, all instrument, needle and sponge counts were correct. The patient tolerated the procedure without incident, was awakened in the operating room, transitioned to the recovery room in stable condition with no apparent complications. <ELECTRONICALLY SIGNED> By: John Hansen MD, FACS 09/15/20 1831 1339 1405 John Hansen MD, FACS /nt
[2020-09-16 04:55] VITALS: BP 107/47; BP 17/47
[2020-09-16 05:42] LABS: HEMATOCRIT 31.7 % (42.0-52.0); HEMOGLOBIN 9.9 gm/dL (14.0-18.0); MCHC 31.3 g/dL (28.0-37.0); MCV 92.6 fL (80.0-100.0); RBC 3.42 mil/uL (4.50-6.00); RDW 15.2 % (10.5-14.5); WBC 20.6 thou/uL (4.0-11.0)
[2020-09-16 05:55] LABS: CALCIUM 8.4 mg/dL (8.5-10.1); CREATININE 2.8 mg/dL (0.7-1.3); POTASSIUM 4.7 mmol/L (3.5-5.1)
[2020-09-16 06:56] VITALS: BP 117/70
--- NOTE | 2020-09-16 07:44 | NUR ---
PAIN MANAGEMENT WAS GOAL FOR PT. PT STATES HE IS IN ALOT PAIN AFTER SURGERY. ALL SURGICAL SITES C/D/I. WOUND PUMP IN PLACE. Q2 TURNS AND MORE FREQUENTLY PER PT REQUEST.
[2020-09-16 15:08] VITALS: BP 119/69
--- NOTE | 2020-09-16 15:27 | NUR ---
KAN reviewed chart and spoke with nursing and attending physician. Pt is s/p colectomy. Pt had wound vac placed. Hem/Onc was consulted today due to spinal lesions. KAN spoke with Halle in admissions at [facility] to provide update. Will likely need a new insurance authorization when pt is medically stable for discharge. KAN is following to assist as needed with discharge planning.
--- NOTE | 2020-09-16 16:21 | NUR ---
assumed care of pt at 0700. pt alert and oriented, in more pain today following sugery. hypoactive bowel sounds. no output from ostomy. wound vac in place. dressings change per order. appetite ok. calls out appropriately. wcm.
--- NOTE | 2020-09-16 18:06 | PATH ---
[facility] [address] [place] [address] PATHOLOGY RPT PROCEDURE Name: FRANCOIS CHILDS Room #: 357-P [facility] IN M.R.#: [id number] Admission: 09/05/20 Date of : 51 Discharge: Report #: [id number] Path Case #: [id number] [facility] Accession Number: [id number] . 01 Material submitted: . colon - BIOPSY COLON MASS . 01 Clinical history: . GI BLEED COLON MASS . 02 Diagnosis: Large intestine mucosa, colon mass, endoscopic biopsy: - TUBULOVILLOUS ADENOMA WITH FOCAL HIGH-GRADE DYSPLASIA. (IUV:pam; 09/16/2020) QMS 09/16/2020 1347 Local . 02 Comment: Dr. Becca Marquez has seen this case and concurs with my diagnosis. (IUV:apm; 09/16/2020) . 02 Electronically signed: . Tennille Bro MD, Pathologist NPI- [id number] . 01 Gross description: . The specimen is received in formalin, labeled "Francois Childs, biopsy colon mass". Received are multiple segments of pale mcfarlane friable tissue ranging in size from 0.1-0.3 cm in maximum dimensions. The specimen is filtered and entirely submitted in cassette A1. (CAA; 09/15/2020) QAC/QA 09/15/2020 1429 Local . 02 Pathologist provided ICD-10: D12.6 . 02 CPT . 359926 Specimen Comment: A courtesy copy of this report has been sent to [phone] Specimen Comment: Report sent to Performed at: [address] [id number] MD Shantanu Mccall MD Phone: [phone] Performed at: [address] [id number] [address] [address] PATHOLOGY RPT PROCEDURE Name: FRANCOIS CHILDS Room #: 357-P [facility] IN M.R.#: [id number] Admission: 09/05/20 Date of : 51 Discharge: Report #: [id number] Path Case #: [id number] MD Tennille Bro MD Phone: [phone]
[2020-09-16 19:29] VITALS: BP 132/77
[2020-09-17 04:25] VITALS: BP 124/77
[2020-09-17 04:31] VITALS: BP 124/77
--- NOTE | 2020-09-17 06:23 | NUR ---
PT CALLS FREQUENTLY TO BE POSITIONED. PAIN MANAGEMENT WITH ORAL AND IV PAIN MEDICATION HAVING GOOD RESULTS. COLOSTOMY ONLY PRODUCING MINIMAL BLOOD DRAINAGE. OTHER ABDOMINAL SITES C/D/I. FOLLOWING POC WITH IVPB ZOSIN. PT WILL HAVE DIALYSIS TODAY.
[2020-09-17 10:49] LABS: HEMATOCRIT 28.1 % (42.0-52.0); HEMOGLOBIN 8.9 gm/dL (14.0-18.0); MCH 29.3 pg (26.0-34.0); MCHC 31.6 g/dL (28.0-37.0); MCV 92.5 fL (80.0-100.0); RBC 3.03 mil/uL (4.50-6.00); RDW 15.1 % (10.5-14.5); WBC 16.3 thou/uL (4.0-11.0)
[2020-09-17 11:38] VITALS: BP 125/64
--- NOTE | 2020-09-17 11:49 | NUR ---
OSTOMY CARE; POUCH LEAKING DUE TO BLOODY DRAINAGE, NEW POUCH PAMELA 2PIECE SYSTEM APPLIED W/ ADAPT RING UNDER WAFER, STOMA RED VIABLE BUDDED, PERISTOMAL SKIN INTACT, SMALL AMT LOOSE BROWN STOOL NOTED, AWAKE, ALERT, COOPERATIVE, PREVENA VAC IN PLACE W/ GOOD SEAL, SUPPLIES AT BS RECOMMENDATIONS; CHANGE POUCH Q 3-5 DAYS AND PRN PRN, EMPTY PRN MIGRATION AGENT AWARE
--- NOTE | 2020-09-17 15:02 | NUR ---
KAN reviewed chart and spoke with nursing and attending physician. Palliative care physician consulted to discuss treatment goals and plan of care. KAN updated Halle in admissions at [facility]. KAN is following to assist as needed with discharge planning.
[2020-09-17 18:47] LABS: CALCIUM 8.2 mg/dL (8.5-10.1); MAGNESIUM 1.8 mg/dL (1.8-2.4); POTASSIUM 4.4 mmol/L (3.5-5.1)
[2020-09-17 19:24] VITALS: BP 196/79
[2020-09-18 04:11] VITALS: BP 141/66
--- NOTE | 2020-09-18 06:02 | NUR ---
PT IS A/0X4. Q2 TURNS AND PAIN MANAGEMENT. PT STATING TONIGHT TO HAVE PHANTOM PAIN IN LEGS. IV PAIN MEDICATION FOLLOWING POC. PT RECEIVED BATH TONIGHT AND COMPLETE BED CHANGE. HOURLY ROUNDING.
--- NOTE | 2020-09-18 07:15 | EKG ---
[place] [address] [facility] [place] [address] ELECTROCARDIOGRAM REPORT Name: FRANCOIS CHILDS Room #: 357-P ADM IN M.R.#: [id number] Admission: 09/05/20 Attend Phys: Alexx Styles Discharge: Date of : 51 Report #: [id number] [facility] Test Date: 2020-09-17 Test Time: 12:19:30 Pat Name: FRANCOIS CHILDS Department: Room: 357 P Gender: M Medical Operations Supervisor: LACI : 1955 Requested By: Mk Tan Order Number: [id number] MD: Danny Mckeon Measurements Intervals [place] Rate: 93 P: 95 MA: 145 QRS: 55 QRSD: 89 T: QT: 378 QTc: 471 Interpretive Statements Sinus rhythm Low voltage, extremity leads Compared to ECG 09/05/2020 09:20:59 T-wave abnormality no longer present Electronically Signed On 09-18-2020 7:15:43 CDT by Danny Mckeon [email or web address] <ELECTRONICALLY SIGNED> By: Danny Mckeon MD, [facility] 09/18/20 0715 D: [id number] Danny Mckeon MD, FACC /EPI
[2020-09-18 07:54] VITALS: BP 133/62
[2020-09-18 10:31] LABS: HEMATOCRIT 27.4 % (42.0-52.0); HEMOGLOBIN 8.6 gm/dL (14.0-18.0); MCH 29.4 pg (26.0-34.0); MCHC 31.4 g/dL (28.0-37.0); MCV 93.4 fL (80.0-100.0); RBC 2.93 mil/uL (4.50-6.00); RDW 15.6 % (10.5-14.5); WBC 17.5 thou/uL (4.0-11.0)
[2020-09-18 10:41] LABS: CALCIUM 8.4 mg/dL (8.5-10.1); CREATININE 2.5 mg/dL (0.7-1.3); MAGNESIUM 1.9 mg/dL (1.8-2.4); POTASSIUM 4.1 mmol/L (3.5-5.1)
--- NOTE | 2020-09-18 15:42 | NUR ---
SW reviewed chart and spoke with nursing and attending physician. Received consult from palliative care physician regarding hospice consult at the nursing facility. Pt is from [facility]. Pt's code status changed to DNR. SW met with pt at bedside to discuss plan of care. Pt states he needs to discuss with his about his wishes. Pt's is currently having health issues and has been trying to get in to see her physician. Pt is hoping his will be able to come visit him tomorrow and can discuss plan of care with physicians. KAN provided update to Darinel in admissions at [facility]. KAN is following to assist as needed with discharge planning.
[2020-09-18 16:04] VITALS: BP 113/48
[2020-09-18 19:18] VITALS: BP 144/79
--- NOTE | 2020-09-18 19:25 | NUR ---
PATIENT IS VERY TEARY. HE KEEPS ON ASKING NURSE TO STAY IN THE ROOM AND NOT TO GO ANYWHERE. FAMILY HERE TO VISIT. UPDATED ON STATUS. WILL CONT WITH PLAN OF CARE.
[2020-09-19 05:35] VITALS: BP 153/71
[2020-09-19 07:38] VITALS: BP 117/71
[2020-09-19 07:52] LABS: CALCIUM 8.6 mg/dL (8.5-10.1); CREATININE 3.1 mg/dL (0.7-1.3); MAGNESIUM 1.9 mg/dL (1.8-2.4); POTASSIUM 3.9 mmol/L (3.5-5.1)
--- NOTE | 2020-09-19 08:12 | NUR ---
PROGRESS VSS, TELE INTACT HAD A 13 BEAT RUN OF VTACH PT IN BED RESTING AT THE TIME. WOUND VAC INTACT ALL OTHER DRSGS C/D/I PT TAKING OXYCODONE FOR PAIN AND MORPHINE FOR SEVERE PAIN REPOSITIONED FREQUENTLY. IV ANTIBIOTICS ORDERED. DIALYSIS THIS AM AND DOSE OF PROCRIT ADMINISTERED BY GRAPPLER. COLOSTOMH INTACT PUT APPROX 40 CC SOFT BROWN STOOL.
--- NOTE | 2020-09-19 11:22 | NUR ---
OSTOMY CARE; POUCH EDGES LOOSE BY PREVENA VAC, VAC INTACT W/ GOOD SEAL, NEW POUCH PAMELA HIGH OUTPUT APPLIED DUE TO LARGE AMT LIQ STOOL. STOMA RED VIABLE SLIGHTLY BUDDED, PERISTOMAL SKIN INTACT, ALERT, COOPERATIVE, SUPPLIES AT BS RECOMMENDATIONS; CHANGE POUCH Q3-5 DAYS AND PRN EMPTY PRN CLERICAL ASSIGNER AWARE
[2020-09-19 12:22] VITALS: BP 110/58
--- NOTE | 2020-09-19 13:09 | EKG ---
[address] [place] [address] ELECTROCARDIOGRAM REPORT Name: FRANCOIS CHILDS Room #: 357-P ADM IN M.R.#: [id number] Admission: 09/05/20 Attend Phys: Alexx Styles Discharge: Date of : 51 Report #: [id number] [facility] Test Date: 2020-09-19 Test Time: 11:50:36 Pat Name: FRANCOIS CHILDS Department: Room: 357 P Gender: M Equity Sales Assistant: LACI : 1955 Requested By: Mk Tan Order Number: [id number] MD: Danny Mckeon Measurements Intervals [place] Rate: 124 P: 82 SD: 141 QRS: 14 QRSD: 92 T: -88 QT: 338 QTc: 486 Interpretive Statements Sinus tachycardia Low voltage, extremity leads Nonspecific T abnormalities, lateral leads Borderline prolonged QT interval Compared to ECG 09/17/2020 12:19:30 T-wave abnormality now present Sinus rhythm no longer present Electronically Signed On 09-19-2020 13:09:11 CDT by Danny Mckeon [email or web address] <ELECTRONICALLY SIGNED> By: Danny Mckeon MD, FAC 09/19/20 1309 1150 1150 Danny Mckeon MD, [facility] /EPI
--- NOTE | 2020-09-19 15:58 | NUR ---
KAN reviewed chart and spoke with nursing and attending physician. Pt is progressing towards goals for discharge. KAN faxed clinical updates to [facility] for review. Spoke with Halle in admissions, who has submitted info to insurance for authorization for skilled placement. KAN spoke with pt's via phone. Discussed discharge options at this time. Pt's states she has left a message for the palliative care physician, who is out of town. Pt's states that she has spoken with three of their sons about pt's plan of care. Their oldest son has not been in contact with pt or his spouse for a couple of years. Pt wants to see their oldest son and then will decide on stopping dialysis. KAN explained admission criteria for [facility]. Pt's states she is working on hiring a customs investigator to find their son. Plan at this time is for pt to return to [facility] for skilled services. Pt wants to continue dialysis at this time. When pt is ready for hospice, family would like to consider [facility]. KAN updated Halle at [facility]. Should the facility get insurance authorization over the weekend, pt will be ready for discharge. Finalized discharge orders/summary will need to be faxed when available. Chart will need to be copied. KAN is available to assist as needed with discharge planning. [facility]--
[2020-09-19 16:41] VITALS: BP 115/57
[2020-09-19 19:29] VITALS: BP 105/67
--- NOTE | 2020-09-19 19:33 | NUR ---
RN ASSUMED PT'S CARE AT 0700AM, PT IS A&OX2 ( PERSON AND PLACE ), PT IS CONTINUING IV ABX , PAIN MANAGEMENT AND WOUND CARE , RN HAS REPORTED DR ABOUT PT'S HIGH HR UP TO 160 , NEW ORDER RECEIVED, EKG SHOWED ST , PT'S BS ARE STABLE, PT HAD DIALYSIS TODAY, REMOVED 1000ML FLUID. RN HAS REPROTED TO NEXT SHIFT TO KEEP EYE ON PT.
--- NOTE | 2020-09-19 20:44 | NUR ---
PT'S HEART RATE RUNNING UP TO 160'S PHYSICIAN NOIFIED EARLIER. NOTIFIED KIMBERLY KATE AWAITING RETURN CALL.
[2020-09-20 03:48] VITALS: BP 132/70
[2020-09-20 05:03] LABS: ABSOLUTE NEUTROPHILS 11.7 thou/uL (1.4-8.2); BASOPHILS 0.6 % (0.0-2.0); EOSINOPHILS 2.8 % (0.0-3.0); HEMATOCRIT 28.8 % (42.0-52.0); HEMOGLOBIN 9.1 gm/dL (14.0-18.0); LYMPHOCYTES 7.3 % (24.0-44.0); MCH 29.9 pg (26.0-34.0); MCHC 31.8 g/dL (28.0-37.0); MONOCYTES 6.3 % (1.0-8.0); PLATELET COUNT 590 thou/uL (150-400); RBC 3.06 mil/uL (4.50-6.00); RDW 15.2 % (10.5-14.5); WBC 14.2 thou/uL (4.0-11.0)
[2020-09-20 05:42] LABS: CALCIUM 8.3 mg/dL (8.5-10.1); MAGNESIUM 1.7 mg/dL (1.8-2.4)
--- NOTE | 2020-09-20 07:35 | NUR ---
PROGRESS PT IN A LOT OF PAIN CALLING OUT FREQUENTLY FOR MEDICATION, REPOSITIONED OFTEN. COLOSTOMY INTACT SOMA PINK MOIST AND PROTRUDING SCANT BLOOD NOTD SMALL LOOSE LIGHT BROWN STOOL. IV INFUSING ANTIBIOTICS ORDERED CONTINUE POC.
[2020-09-20 08:12] VITALS: BP 100/57
[2020-09-20 09:20] VITALS: BP 100/57
[2020-09-20 15:33] VITALS: BP 108/55
--- NOTE | 2020-09-20 18:44 | NUR ---
RN ASSUMED PT'S CARE AT 0700AM, PT IS A&OX2 ( PERSON AND PLACE ), PT CAN FOLLOW COMMANDS, PT IS CONTINUING IV ABX, WOUND CARE AND PIAN MANAGEMENT, BUT PT STILL EATS POOR AT MEAL TIME, PT NEEDS HELP MEALS AND ADL. PT'S R SIDE CLOSTOMY IS WORKING,PT'S VS ARE STABLE BY THIS TIME.
[2020-09-21 03:47] VITALS: BP 103/64
[2020-09-21 03:47] LABS: CALCIUM 8.3 mg/dL (8.5-10.1); CREATININE 2.8 mg/dL (0.7-1.3); MAGNESIUM 1.7 mg/dL (1.8-2.4); POTASSIUM 3.9 mmol/L (3.5-5.1)
[2020-09-21 08:07] VITALS: BP 121/74
[2020-09-21 15:04] VITALS: BP 113/77
--- NOTE | 2020-09-21 19:34 | NUR ---
RN ASSUMED PT'S CARE AT 070AM, PT IS A&OX2 ( PERSON AND PLACE), PT CAN FOLLOW ALL COMMANDS, PT IS CONTINUING IV ABX, WOUND CARE AND PAIN MANAEGEMENT , RN HAS REPORTED DR ABOUT PT'S POOR EATING, PT'S VS ARE STABLE AT DAY SHIFT.
[2020-09-21 19:39] VITALS: BP 98/74
[2020-09-22 04:50] LABS: HEMATOCRIT 29.1 % (42.0-52.0); HEMOGLOBIN 9.3 gm/dL (14.0-18.0); MCH 30.1 pg (26.0-34.0); MCHC 31.8 g/dL (28.0-37.0); MCV 94.7 fL (80.0-100.0); RBC 3.08 mil/uL (4.50-6.00); RDW 16.1 % (10.5-14.5)
[2020-09-22 05:00] LABS: CALCIUM 8.3 mg/dL (8.5-10.1); CREATININE 3.4 mg/dL (0.7-1.3); MAGNESIUM 1.8 mg/dL (1.8-2.4); POTASSIUM 3.8 mmol/L (3.5-5.1)
[2020-09-22 07:38] VITALS: BP 93/59
--- NOTE | 2020-09-22 07:40 | NUR ---
PROGRESS PT CALLING OUT FREQUENTLY SCARED TO BE ALONE RATING PAIN A CONSISTENT 8 TAKING HYDROMORPHONE AND OXYCODONE WITH SCANT EFFECT PT ANXIOUS TEL RUNNING 130'S WITH OCCASIONAL DROPS O 70'S TO 80'S OHER VSS. DRESSING C/D/I. CONTINUE POC.
--- NOTE | 2020-09-22 09:59 | NUR ---
PT RECIEVING DIALYSIS THIS AM. PT COMPLAINING OF PAIN THIS AM. JAMES AND DAVID GIVEN THIS AM. HR 140'S. DR CASTANEDA NOTIFIED. PAIN MEDICATIONS CHANGED. WILL CONTINUE TO MONITOR PATIENT.
--- NOTE | 2020-09-22 14:00 | NUR ---
Nutrition: verbal consult from physician for RD to evaluate as pt is not eating; see Assessements for full note. ESRD pt on HD, hx of colon cancer, colon mass requiring colostomy, stage 4 wounds s/p debridement. Intake avg 25% or less; has Nerpo ordered TID. Currently on Renal diet; however, K has been WNL, last phos WNL. Recommend liberalize to regular diet and follow labs and/or consider nutrition support.
--- NOTE | 2020-09-22 14:06 | PATH ---
[facility] [place] [address] PATHOLOGY RPT PROCEDURE Name: FRANCOIS CHILDS Room #: 357-P ADM IN M.R.#: [id number] Admission: 09/05/20 Date of : 51 Discharge: Report #: [id number] Path Case #: [id number] [facility] Accession Number: [id number] . 01 Material submitted: . PART A: colon - COLOSTOMY PART B: colon - LEFT COLECTOMY SUTURE WHITLOCK THE DISTAL. Modifiers: left PART C: colon - EXCESS COLOSTOMY TISSUE . 01 Clinical history: . BOWEL OBSTRUCTION SACRAL DECUB WOUNDS DEBRIDEMENT WITH IRRIGATION . 02 Diagnosis: A. Large intestine, colostomy: - Reactive changes. - Negative for malignancy. . B. Large intestine, left colon, left colectomy: - INVASIVE MODERATELY DIFFERENTIATED ADENOCARCINOMA MEASURING 5.5 CM IN GREATEST DIMENSION INVADING THROUGH MUSCULARIS PROPRIA INTO PERICOLORECTAL TISSUE. - Multiple tubular adenomas present within the background. - Margins of resection free of dysplasia or malignancy. - Twelve reactive lymph nodes; negative for malignancy (0/12). . Omentum, omentectomy: - 24.2 cm fibroadipose tissue with reactive changes. - Negative for malignancy. . C. Large intestine, excess colostomy tissue: - Multiple fragments showing tubular adenoma as well as tubulovillous adenoma. - Negative for high grade dysplasia. (IUV/db; 09/19/2020) . . Surgical Pathology Cancer Case Summary . Protocol posting date: August 2019 . . COLON AND RECTUM: Resection, Including Transanal Disk Excision of Rectal Neoplasms . Procedure ___ Left hemicolectomy . [address] [address] PATHOLOGY RPT PROCEDURE Name: AMADEOFRANCOIS Vizcaino Room #: 357-P [facility] IN ..#: [id number] Admission: 09/05/20 Date of : 51 Discharge: Report #: [id number] Path Case #: [id number] Tumor Site ___ Left (descending) colon . Tumor Size Greatest dimension (centimeters): 5.5 cm . Macroscopic Tumor Perforation ___ Not identified . Histologic Type ___ Adenocarcinoma . Histologic Grade ___ G2: Moderately differentiated . Tumor Extension ___ Tumor invades through the muscularis propria into pericolorectal tissue . Margins ___ All margins are uninvolved by invasive carcinoma, high-grade dysplasia, intramucosal adenocarcinoma, and adenoma Margins examined: Distance of invasive carcinoma from closest margin: 13.2 cm Specify closest margin: distal mucosal margin . Treatment Effect ___ No known presurgical therapy . Lymphovascular Invasion ___ Not identified . Perineural Invasion ___ Not identified . Tumor Deposits ___ Not identified . Regional Lymph Nodes . Number of Lymph Nodes Involved: 0 . Number of Lymph Nodes Examined: 12 Pathologic Stage Classification (pTNM, AJCC 8th Edition) Note: Reporting of pT, pN, and (when applicable) pM categories is based on information available to the pathologist at the time the report is issued. . Primary Tumor (pT) [facility] [address] [place] [address] PATHOLOGY RPT PROCEDURE Name: FRANCOIS CHILDS Room #: 357-P ADM IN M.R.#: [id number] Admission: 09/05/20 Date of : 51 Discharge: Report #: [id number] Path Case #: [id number] ___ pT3: Tumor invades through the muscularis propria into pericolorectal tissues . Regional Lymph Nodes (pN) ___ pN0: No regional lymph node metastasis . Distant Metastasis (pM) (required only if confirmed pathologically in this case) ___ pMx: Not known . Additional Pathologic Findings ___ Adenoma(s), multiple QTP 09/19/2020 1703 Local . 02 Comment: Per [facility] Cancer Committee Protocol, MSI (four immunohistochemical stains) are ordered on block B7 and the results of these will be reported in an addendum to follow. (IUV/db; 09/19/2020) . 02 Addendum: . Per [facility] Cancer Committee Protocol, mismatch repair (MMR) protein immunohistochemical staining was performed. . Reason for testing: To evaluate for evidence of defective mismatch repair proteins. Method: Immunohistochemical staining for the presence or absence of protein expression of one or more of the following MMR protein markers: MLH1, MSH2, MSH6 and PMS2. Tumor type: Invasive adenocarcinoma . Results: MLH1 - Preserved MSH2 - Preserved MSH6 - Preserved PMS2 - Preserved . Mismatch Repair Status: MMR Proficient . Interpretation: . All four MMR proteins are preserved within tumor cells. This suggests the presence of normal DNA mismatch repair function within the tumor and an observable defect in mismatch repair is not identified. The likelihood that this patient has an inherited germline mutation syndrome due to defective mismatch repair is reduced but not totally eliminated. If the patient has a strong personal or family history of HPNCC/Abraham syndrome [address] [address] PATHOLOGY RPT PROCEDURE Name: AMADEOFRANCOIS Carrillo Room #: 357-P [facility] IN M.R.#: [id number] Admission: 09/05/20 Date of : 51 Discharge: Report #: [id number] Path Case #: [id number] related cancers (colorectal, endometrial, gastric, ovarian, pancreatic, ureter/renal pelvis, biliary tract, brain, small bowel and [place] syndrome), consider MSI testing by PCR methodology. Suggest clinical correlation and follow up. . These test results are designed for screening purposes only and are useful tools in identifying cancer patients that are more likely to have Abraham Syndrome related diagnoses. Tests should be interpreted in the context of clinical findings, family history and laboratory data. Abnormal IHC results for MMR protein expression are not considered diagnostic for Abraham Syndrome. (IUV:pam; 09/22/2020) . . Professional services performed by [email or web address] at [facility], [address], [place] [address]. Technical services performed by [email or web address] at [address] [place] [address], [address], [place] [address]. QTP/09/22/2020 Addendum Electronically Signed by Tennille Bro MD, Pathologist . 02 Electronically signed: . Tennille Bro MD, Pathologist NPI- [id number] . 01 Gross description: . A. The specimen is received in formalin, labeled "Francois Childs, colostomy". Received is a segment of colon measuring 6.8 cm in length by 3.7 cm in diameter. Both margins are stapled. In the center of the specimen, there is an ellipse of skin measuring 6.3 x 2.7 cm with a centrally located stoma with exposed light mcfarlane mucosa measuring 2.8 x 2.5 cm. The serosal surface of the colon is pink-mcfarlane in appearance with overlying adhesions. Opening the specimen reveals light mcfarlane mucosa with moderate architectural folds. No distinct nodules or lesions are noted grossly. The specimen is submitted representatively in cassette A1. . B. The specimen is received in formalin, labeled "Francois Childs, left colectomy, suture whitlock distal". Received is an oriented segment of colon measuring 35.2 cm in length and ranges in diameter from 3.0 to 6.1 cm. Both margins are stapled closed with a suture present at one margin designating this as the distal aspect. The serosal surface is pink-delatorre in appearance with overlying adhesions, as well as tattooing present near the distal margin. The attached mesenteric fat measures 1.1 cm in thickness. There is a moderate amount of attached omentum measuring 24.2 x 5.9 x 1.2 cm. The mesenteric margin is inked orange. The specimen is opened along the antimesenteric line to reveal a near circumferential pink-mcfarlane, focally ulcerated mass measuring 5.5 x 4.4 cm, which is 15.1 cm from the proximal margin, and 13.2 cm from the distal margin. The surrounding serosal and fatty surfaces are inked black. Sectioning [facility] [address] [place] [address] PATHOLOGY RPT PROCEDURE Name: FRANCOIS CHILDS Room #: 357-P ADM IN M.R.#: [id number] Admission: 09/05/20 Date of : 51 Discharge: Report #: [id number] Path Case #: [id number] reveals the mass to grossly extend through the muscular is propria with a maximum depth of invasion of 1.0 cm, which is 0.3 cm from the inked serosal surface, and 1.1 cm from the mesenteric margin. Proximal to the mass, five polyps are identified ranging in size from 0.5 to 0.8 cm, which range in distance from 1.5 to 11.2 cm proximal to the mass, the closest of which is 3.4 cm from the proximal margin. 2.8 cm distal to the mass, a pink-mcfarlane polyp is identified measuring 0.6 cm, which is 11.1 cm from the distal margin. The remainder of the clinic mucosa is pale mcfarlane to light mcfarlane with normal architectural folds. Sectioning through the attached omentum reveals yellow-mcfarlane cut surfaces with no grossly distinct nodules or lesions. Dissection and palpation of the attached pericolic fat reveals 10 possible lymph nodes ranging in size from 0.1 to 1.3 cm in maximum dimensions. The specimen is submitted representatively as follows: . B1 proximal margin, en face B2 distal margin, en face B3 perpendicular section through mesenteric margin (orange ink) B4 support representative section of mass to show relationship with inked serosal surface B5 support representative section of mass to show relationship with mesenteric margin B6-B9 additional support representative sections of mass B10 four smaller polyps proximal to mass, intact B11 larger polyp proximal to mass, bisected B12 polyp distal to mass B13 uninvolved colonic mucosa B14 support representative sections of omentum B15-B16 intact possible lymph nodes B17-B18 one bisected lymph node in each cassette B19-B21 support representative sections of lymphovascular bundles. (CAA; 09/17/2020) . After initial microscopic examination, extensive dissection and palpation of the attached pericolic fat reveals no additional identifiable lymph nodes. Extensive sectioning through the attached omentum reveals no distinct nodules, lesions, or lymph nodes. Additional support representative sections are submitted as follows: . B22-B23 additional support representative sections of omentum B24-B28 support representative sections of mesenteric fat. (CAA; 09/18/2020) . C. The specimen is received in formalin, labeled "Francois Childs, excess colostomy tissue". Received are two segments of light mcfarlane mucosa measuring 4.0 x 2.5 x 1.1 cm in aggregate dimensions. No distinct nodules or lesions are noted grossly. Hydrodynamics Professor sections are submitted in cassette C1. [address] [address] PATHOLOGY RPT PROCEDURE Name: FRANCOIS CHILDS Room #: 357-P [facility] IN M.R.#: [id number] Admission: 09/05/20 Date of : 51 Discharge: Report #: [id number] Path Case #: [id number] (CAA; 09/17/2020) QAC/QAC 09/18/2020 1423 Local . 02 Pathologist provided ICD-10: C18.6, D12.6, K63.89 . 02 CPT . 446336, 589324, 289237, 205447, [id number], L93477 Specimen Comment: A courtesy copy of this report has been sent to [phone] Specimen Comment: Report sent to Performed at: [address], [place] [id number] MD Shantanu Mccall MD Phone: [phone] Performed at: [address] [id number] MD Tennille Bro MD Phone: [phone]
[2020-09-22 15:19] VITALS: BP 107/70
--- NOTE | 2020-09-22 16:22 | NUR ---
KAN reviewed chart and spoke with nursing and attending physician. Pt is not ready for discharge today. Pt remains on IV abx and IV pain meds. Wound vac in place. KAN provided update to Halle in admissions at [facility]. Facility is working on insurance auth for pt to return skilled. KAN is following to assist as needed with discharge planning.
--- NOTE | 2020-09-22 19:18 | NUR ---
PT COMPLAINING OF PAIN 04/12. GIVEN SCHEDULED AND PRN PAIN MEDICATION. PT ABLE TO SLEEP 2 HRS [id number]. FOLLOWING SLEEP HE STATES HIS PAIN IS MUCH BETTER AND WELL CONTROLLED. HR REMAINS 130-140'S TODAY. SPOKE WITH PT'S AND UPDATED HER THIS EVENING.
[2020-09-22 19:32] VITALS: BP 110/70
[2020-09-23 05:23] VITALS: BP 108/68
[2020-09-23 05:49] VITALS: BP 122/80
--- NOTE | 2020-09-23 07:13 | NUR ---
Patient making slow progress towards outcome goals. No longer screaming out in pain, calls out appropriately for pain medication need. Vital signs stable.
[2020-09-23 07:33] VITALS: BP 118/78
[2020-09-23 10:36] LABS: HEMATOCRIT 29.4 % (42.0-52.0); HEMOGLOBIN 9.4 gm/dL (14.0-18.0); MCHC 31.9 g/dL (28.0-37.0); RBC 3.13 mil/uL (4.50-6.00); RDW 15.8 % (10.5-14.5); WBC 14.5 thou/uL (4.0-11.0)
[2020-09-23 10:47] LABS: CALCIUM 8.3 mg/dL (8.5-10.1); CREATININE 2.8 mg/dL (0.7-1.3); MAGNESIUM 1.7 mg/dL (1.8-2.4); POTASSIUM 3.5 mmol/L (3.5-5.1)
[2020-09-23 15:33] VITALS: BP 100/59
--- NOTE | 2020-09-23 15:36 | NUR ---
KAN reviewed chart and spoke with nursing and attending physician. Pt remains on IV abx and IV pain meds. Pt may need a peg tube for supplemental nutrition. KAN faxed clincal/therapy updates to Halle at [facility] for review and also to Corina at [facility]. KAN spoke with Corina via phone to provide clinical update. KAN left voice message for pt's , Theresa, to provide update. Plan is for pt to return to [facility] when medically stable. Insurance authorization will need to be obtained. KAN is following to assist as needed with discharge planning.
--- NOTE | 2020-09-23 17:56 | NUR ---
pain uncontrolled today, despite receiving frequent pain meds. asking to wait to do dressing change until tomorrow. ongoing talks about pg tube placement. eating litle amounts. no progress at this time.
[2020-09-23 20:54] VITALS: BP 105/68
[2020-09-24 03:34] VITALS: BP 103/64
[2020-09-24 05:51] LABS: HEMATOCRIT 28.8 % (42.0-52.0); HEMOGLOBIN 9.2 gm/dL (14.0-18.0); MCH 30.4 pg (26.0-34.0); MCV 94.9 fL (80.0-100.0); RBC 3.04 mil/uL (4.50-6.00); RDW 16.4 % (10.5-14.5); WBC 14.3 thou/uL (4.0-11.0)
[2020-09-24 05:52] LABS: CALCIUM 8.3 mg/dL (8.5-10.1); CREATININE 3.4 mg/dL (0.7-1.3); MAGNESIUM 1.7 mg/dL (1.8-2.4); POTASSIUM 4.1 mmol/L (3.5-5.1)
--- NOTE | 2020-09-24 09:29 | NUR ---
OSTOMY CARE; AWAKE, ALERT, C/O SOME PAIN BUT NOT SEVERE, POUCH EDGES LOOSE, PREVENA VAC LOOSE, NO SEAL NOTED, PREVENA REMOVED, ABD SUTURE LINE MID ABD INTACT, NO DRAINAGE, WELL APPROXIMATED, YUMIKO INTACT, SUTURE LINE LLQ INTACT, SCANT BLOODY DRAINAGE, YUMIKO INTACT, NO S/S INFECTION, NEW POUCH PAMELA APPLIED STOMA RED VIABLE BUDDED W/ LOOSE BROWN STOOL NOTED, HIGH OUTPUT APPLIED, W/ ADAPT RING UNDER WAFER, TELFA DRSG APPLIED TO MIDLINE SUTURE LINE AND LLQ WOUND, DATA CONVERSION OPERATOR INFORMED OF DC PREVENA, SUPPLIES AT BS RECOMMENDATIONS; CHANGE POUCH Q 3-5 DAYS AND PRN, EMTPY PRN DATA CONVERSION OPERATOR AWARE
[2020-09-24 15:27] VITALS: BP 91/60
--- NOTE | 2020-09-24 16:34 | NUR ---
Pt, and the attending discussing plan of care. Agg tx vs hospice care. Pt considering peg placement and continues to have pain control issues. DC production planner [facility] Will follow.
--- NOTE | 2020-09-24 16:36 | NUR ---
FAXED CLINICAL UPDATE TO [facility] RECEIVED CONFIRMATION AND LEFT MSG WITH FRANKLIN IN ADM.
[2020-09-24 19:08] VITALS: BP 117/63
[2020-09-25 03:57] VITALS: BP 89/44
[2020-09-25 06:24] LABS: HEMATOCRIT 27.8 % (42.0-52.0); HEMOGLOBIN 9.3 gm/dL (14.0-18.0); MCH 31.5 pg (26.0-34.0); MCHC 33.3 g/dL (28.0-37.0); MCV 94.5 fL (80.0-100.0); RBC 2.95 mil/uL (4.50-6.00); RDW 16.6 % (10.5-14.5); WBC 14.2 thou/uL (4.0-11.0)
--- NOTE | 2020-09-25 06:27 | NUR ---
PT CALLS FREQUENTLY FOR PAIN INTERVENTIONS. ROTATED IV AND ORAL TO ACHIEVE COMFORT. PT ALSO CALLS FREQUENTLY FOR REPOSITIONING. PT BASELINE MENTATION IS SHOWING SOME FORGETFULNESS. VSS AND NO FEVERS.
[2020-09-25 06:29] LABS: CALCIUM 8.1 mg/dL (8.5-10.1); CREATININE 2.5 mg/dL (0.7-1.3); MAGNESIUM 1.6 mg/dL (1.8-2.4); POTASSIUM 3.7 mmol/L (3.5-5.1)
[2020-09-25 07:29] VITALS: BP 96/61
--- NOTE | 2020-09-25 14:13 | NUR ---
KAN reviewed chart and spoke with nursing and attending physician. Pt remains on IV abx and IV pain meds. Palliative care physician met [facility] pt earlier today. KAN met with pt at bedside to discuss plan of care. Pt states his will at the hospital today and they will discuss peg tube placement v. hospice. Pt wants to continue dialysis at this time. KAN updated Halle in admissions at [facility], who states they do have insurance auth. KAN spoke with Anne at [facility] regarding pt's discharge plan. KAN is following to assist as needed with discharge planning.
[2020-09-25 15:16] VITALS: BP 82/42
[2020-09-25 19:50] VITALS: BP 92/57
[2020-09-26 04:10] VITALS: BP 111/63
--- NOTE | 2020-09-26 05:57 | NUR ---
Pt. slept fair during the night. Repositioned for comfort. Scheduled pain med given with good relief, no prn pain med given. Refused wound care dressing last night as day shift RN did it late evening.
[2020-09-26 08:22] VITALS: BP 98/65
[2020-09-26 08:25] LABS: HEMATOCRIT 27.2 % (42.0-52.0); HEMOGLOBIN 8.7 gm/dL (14.0-18.0); MCHC 31.8 g/dL (28.0-37.0); MCV 94.2 fL (80.0-100.0); RBC 2.88 mil/uL (4.50-6.00); RDW 17.1 % (10.5-14.5); WBC 15.5 thou/uL (4.0-11.0)
[2020-09-26 09:00] LABS: CALCIUM 8.4 mg/dL (8.5-10.1); CREATININE 3.3 mg/dL (0.7-1.3); MAGNESIUM 1.7 mg/dL (1.8-2.4); POTASSIUM 3.8 mmol/L (3.5-5.1)
--- NOTE | 2020-09-26 12:36 | NUR ---
THIS MORNING PT RECEIVED DIALYSIS PER RENAL, DIALYSIS PULLED 1.5L OUT. WHEN RN ASKED WHAT THE PLAN IS TO THE PT REGARDING FUTURE CARE, PT TEARED UP AND STATED THAT HE WILL NOT BE PURSUING PEG TUBE PLACEMENT AND WILL OPT TO GO TO HOSPICE. PER , PT WANTING TO RECEIVE DIALYSIS IS IMPEDING THIS PROCESS THAT ONLY ON RARE OCCASIONS DO PTS ON HOSPICE CARE RECEIVE DIALYSIS. RN BROUGHT THIS UP TO THE TATO AND THE MD. AND THE PLAN FOR THIS PT AT THIS TIME SINCE HE IS ON DIALYSIS IS TO DISCHARGE BACK TO SNF, RECEIVE DIALYSIS AT THAT PLACE AND THEN GO TO HOSPICE WHEN APPROPERIATE. DISCHARGE ORDERS ARE IN, RN WILL ASK WHEN PT WILL BE TRANSFERRED OUT
[2020-09-26] MEDS ORDERED: METRONIDAZOLE500 M4 PO (12:49)
[2020-09-26] MEDS ORDERED: PROTONIX 20 MG20 M1 PO (12:49)
[2020-09-26] MEDS ORDERED: TRAZODONE HCL100 MG PO (12:49)
[2020-09-26] MEDS ORDERED: LEVOFLOXACIN500 MG PO (12:49)
--- NOTE | 2020-09-26 15:25 | NUR ---
KAN reviewed chart and spoke with nursing and attending physician. [facility] does have insurance authorization and can admit pt today. Pt has decided to not have a peg tube placed. KAN met with pt at bedside to provide update. Pt very tearful and states that he does want to meet with hospice prior to returning to [facility]. Pt's was at [facility] last evening, but pt did not have a chance to discuss hospice at that time. Pt requests hospice eval/info visit over the weekend. KAN explained that insurance auth is valid through Tuesday, 09/29. SW further discussed palliative care v. hospice. Pt wanting to think about stopping dialyiss. Pt requested SW contact his . KAN spoke with his , Theresa, via phone to provide update and discuss hospice eval/info visit. Pt's is agreeable with plan. Options discussed. Request for referral to Hospice. Pt's requests to be contacted to arrange visit with her present if possible. KAN faxed referral to Hospice and spoke with Precious in intake. Weekend flash welder to coordinate eval. KAN updated Halle at [facility], pt's nurse and attending physician. Should pt qualify and be agreeable with discharge to [facility], pt could d/c over the weekend. No weekend discharge to [facility] planned at this time. KAN is following to assist as needed with discharge planning.
[2020-09-26 17:11] VITALS: BP 99/62
[2020-09-26 20:05] VITALS: BP 109/58
--- NOTE | 2020-09-27 01:01 | NUR ---
dressing change completed. Pre-medicated with diluadid prior to dressing change. he maons and whinces through the changing of the dressing to his backside. repostioned q2 hours. relaxed and postioned with pillows.
[2020-09-27 04:50] VITALS: BP 99/53
[2020-09-27 05:17] LABS: HEMATOCRIT 26.7 % (42.0-52.0); HEMOGLOBIN 8.6 gm/dL (14.0-18.0); MCH 30.3 pg (26.0-34.0); MCHC 32.1 g/dL (28.0-37.0); MCV 94.4 fL (80.0-100.0); RBC 2.83 mil/uL (4.50-6.00); RDW 17.5 % (10.5-14.5); WBC 14.3 thou/uL (4.0-11.0)
[2020-09-27 05:34] LABS: CALCIUM 8.2 mg/dL (8.5-10.1); MAGNESIUM 1.7 mg/dL (1.8-2.4); POTASSIUM 3.5 mmol/L (3.5-5.1)
[2020-09-27 05:54] LABS: CREATININE 2.2 mg/dL (0.7-1.3)
[2020-09-27 08:09] VITALS: BP 78/43
[2020-09-27 12:46] VITALS: BP 96/56
[2020-09-27 15:23] VITALS: BP 101/69
--- NOTE | 2020-09-27 18:24 | NUR ---
HAS BEEN IN PAIN PERSISTENTLY. PAIN MEDICATION MILDLY EFFECTIVE IN CONTROLLING PAIN. BLOOD PRESSURE LOW BUT PATIENT ON SYMPTOMATIC. WOUND CARE GIVEN. WILL CONT WITH PLAN OF CARE.
[2020-09-27 21:23] VITALS: BP 99/66
[2020-09-27 21:45] VITALS: BP 120/65
[2020-09-28 03:11] VITALS: BP 114/70
[2020-09-28 08:06] VITALS: BP 97/52
[2020-09-28 17:57] VITALS: BP 96/58
--- NOTE | 2020-09-28 18:16 | NUR ---
CONT TO REST IN BED. DRESSING CHANGE TO COLOSTOMY AND WOUNDS COMPLETED AFTER ADMINISTRATION OF PAIN MEDICATION. HE DOES HAVE A BETTER APPETITE TODAY COMPARED TO YESTERDAY. HE IS MUCH MORE AWAKE AND PLAYFUL TODAY. RESPIRATIONS REMAIN UNLABORED. WILL CONT WITH PLAN OF CARE.
[2020-09-28 20:00] VITALS: BP 98/58
[2020-09-29 04:45] VITALS: BP 106/68
--- NOTE | 2020-09-29 08:14 | HC ---
[facility] [place] [address] CONSULTATION Name: FRANCOIS CHILDS Room #: 357-P ADM IN M.R.#: [id number] Admission: 09/05/20 Attend Phys: Alexx Styles Discharge: Date of : 51 Report #: [id number] THIS REPORT FOR: cc: Erich Mackenzie MD, Christopher B. MD Al-Stephan,Stefany Blair MD ~ REASON FOR CONSULTATION: End-stage renal disease. REASON FOR PRESENTATION: Blood in his colostomy bag. HISTORY OF PRESENT ILLNESS: This is a very well-known patient to me. He is a 64-year-old who used to be at the [facility] facility. He is known to have end-stage renal disease, significant pressure ulcers on the sacral area and the hip area. He has a history of colostomy. He dialyzes every Tuesday, Tuesday and Tuesday. He is a bilateral amputee. Nursing staff in his facility were concerned about blood in his colostomy bag and they sent him to the Emergency Room for further evaluation and management. CT showed marked wall thickening of the distal portion of the sigmoid and the rectum consistent with colitis and proctitis. The patient was admitted for further evaluation and management. He was seen by the GI team along with the Gastroenterology. I was consulted to manage his end-stage renal disease. PAST MEDICAL HISTORY: Extensive and includes the followin. End-stage renal disease, maintained on hemodialysis every Tuesday, Tuesday and Tuesday. 2. Peripheral vascular disease, post bilateral above-knee amputation. 3. Coronary artery disease. 4. Colon cancer post-colostomy. 5. Diabetes mellitus. 6. Hyperlipidemia. 7. Sacral decubitus. SOCIAL HISTORY: He has been living in different nursing facilities with no drug or alcohol abuse. FAMILY HISTORY: Hypertension. ALLERGIES: MORPHINE. MEDICATIONS: Currently the patient is maintained on the followin. Carbidopa. 2. Hydrocodone. 3. Lispro insulin. 4. Zosyn. REVIEW OF SYSTEMS: [address] [address] CONSULTATION Name: FRANCOIS CHILDS Room #: 357-P [facility] IN .R.#: [id number] Admission: 09/05/20 Attend Phys: Alexx Styles Discharge: Date of : 51 Report #: [id number] GENERAL: No fever or chills. CARDIOVASCULAR: No chest pain or palpitation. PULMONARY: No cough or hemoptysis. GASTROINTESTINAL: As per the history of present illness. MUSCULOSKELETAL: Bilateral amputee, sacral and hip decubitus ulcers. PHYSICAL EXAMINATION: VITAL SIGNS: Temperature 36.5, pulse is 80, respiratory rate is 18, blood pressure is 129/58. HEAD AND NECK: No jugular venous distention. CHEST: No crackles. CARDIOVASCULAR: No rub. ABDOMEN: Colostomy bag present. LOWER EXTREMITIES: Bilateral amputee. NEUROLOGICAL: Awake and oriented x 3. MUSCULOSKELETAL: Bilateral amputee. I did not examine his sacral decubitus, but I looked at the images obtained. LABORATORY VALUES: White blood cell count 17.4, hemoglobin 8.2. Sodium is 134, potassium is 4.5, BUN is 54, creatinine is 2.8, albumin is 1.4. ASSESSMENT, IMPRESSION AND PLAN: 1. End-stage renal disease. 2. Proctocolitis. 3. Gastrointestinal bleeding. 4. Continue with the usual hemodialysis every Tuesday, Tuesday and Tuesday. 5. GI evaluation. 6. Antibiotics per the Infectious Disease. 7. We will continue to follow. <ELECTRONICALLY SIGNED> By: Stefany Greenberg MD 09/29/20 0814 0733 Stefany Greenberg MD /nt
--- NOTE | 2020-09-29 10:47 | NUR ---
OSTOMY CARE; POUCH INTACT, CHANGED YESTERDAY, NO LEAKAGE, LIQ STOOL NOTED, SUPPLIES AT BS, AWAKE, ALERT, DRSG CLEAN, DRY OVER MID LINE INCISION, YUMIKO REMAIN, WILL CONT TO FOLLOW WOOL MIXER AWARE
--- NOTE | 2020-09-29 11:29 | NUR ---
DISCHARGE NOTE: KAN reveiwed chart and spoke with nursing and attending physician. Pt is medically stable for discharge back to [facility] today. Facility has insurance authorization and can accept pt today. KAN received voice message from Roney at [facility], stating that pt's was not able to make it to the hospital over the weekend for info visit/hospice eval. KAN spoke with pt's via phone. Pt's states she is not feeling well today and will not be coming to the hospital today as well. Pt's states that they are open to pt returning skilled and then meeting with Hospice at the facility at a later time to discuss palliative care/hospice. Pt's is agreeable with plan for pt to discharge back to the facility today. KAN met with pt at bedside to provide update and discuss discharge plan. Pt is aware and agreeable. Pt had dialysis earlier today. Ambulance transportation scheduled for 1430 via [facility]. KAN faxed finalized discharge orders/summary to [facility]. Confirmed info was received with Halle in admissions. KAN spoke with Laine in intake at [facility] to provide update. [facility] to reach out to pt's to schedule an info visit. [facility] form placed on pt's chart. Chart copy requested. Nursing to call report. KAN spoke with pt's via phone to notify of transportation time. No additional SW needs identified at this time, but is available to assist should needs arise.
[2020-09-29 14:40] VITALS: BP 106/68
== END 2020-09-29 14:45 | DRG 853 ==
LOC: ER 07:26 → EROBS 13:17 → 3W 13:17 → ICU 09-24 18:31 → 3W 09-24 18:52
PROVIDERS: Emergency Medicine; Hospitalist; Internal Medicine; Nurse Practitioner; Specialist; Student in an Organized Health Care Education/Training Program; Surgery; ADMIT Hospitalist; ATTEND Hospitalist
PROC: 5A1D70Z Performance of Urinary Filtration, Intermittent, Less than 6 Hours Per Day (ICD-10-PCS; 2020-09-06)
PROC: 30233N1 Transfusion of Nonautologous Red Blood Cells into Peripheral Vein, Percutaneous Approach (ICD-10-PCS; principal; 2020-09-10)
PROC: 5A1D70Z Performance of Urinary Filtration, Intermittent, Less than 6 Hours Per Day (ICD-10-PCS; 2020-09-12)
PROC: 0DBE8ZX Excision of Large Intestine, Via Natural or Artificial Opening Endoscopic, Diagnostic (ICD-10-PCS; 2020-09-12)
PROC: 0DB68ZX Excision of Stomach, Via Natural or Artificial Opening Endoscopic, Diagnostic (ICD-10-PCS; 2020-09-12)
PROC: 0QB20ZZ Excision of Right Pelvic Bone, Open Approach (ICD-10-PCS; 2020-09-15)
PROC: 0DTG0ZZ Resection of Left Large Intestine, Open Approach (ICD-10-PCS; 2020-09-15)
PROC: 0QB30ZZ Excision of Left Pelvic Bone, Open Approach (ICD-10-PCS; 2020-09-15)
PROC: 0D1L0Z4 Bypass Transverse Colon to Cutaneous, Open Approach (ICD-10-PCS; 2020-09-15)
PROC: 0QB10ZZ Excision of Sacrum, Open Approach (ICD-10-PCS; 2020-09-15)
PROC: 5A1D70Z Performance of Urinary Filtration, Intermittent, Less than 6 Hours Per Day (ICD-10-PCS; 2020-09-15)
PROC: 5A1D70Z Performance of Urinary Filtration, Intermittent, Less than 6 Hours Per Day (ICD-10-PCS; 2020-09-17)
PROC: 5A1D70Z Performance of Urinary Filtration, Intermittent, Less than 6 Hours Per Day (ICD-10-PCS; 2020-09-19)
PROC: 5A1D70Z Performance of Urinary Filtration, Intermittent, Less than 6 Hours Per Day (ICD-10-PCS; 2020-09-22)
PROC: 5A1D70Z Performance of Urinary Filtration, Intermittent, Less than 6 Hours Per Day (ICD-10-PCS; 2020-09-29)
DX: A41.9 Sepsis, unspecified organism (principal); L89.324 Pressure ulcer of left buttock, stage 4; L89.154 Pressure ulcer of sacral region, stage 4; L89.894 Pressure ulcer of other site, stage 4; N18.6 End stage renal disease; E43 Unspecified severe protein-calorie malnutrition; G92 Toxic encephalopathy; K29.71 Gastritis, unspecified, with bleeding; K55.9 Vascular disorder of intestine, unspecified; C18.9 Malignant neoplasm of colon, unspecified; Z68.1 Body mass index [BMI] 19.9 or less, adult; I13.2 Hypertensive heart and chronic kidney disease with heart failure and with stage 5 chronic kidney disease, or end stage renal disease; K51.30 Ulcerative (chronic) rectosigmoiditis without complications; I42.9 Cardiomyopathy, unspecified; R64 Cachexia; F32.9 Major depressive disorder, single episode, unspecified; K52.89 Other specified noninfective gastroenteritis and colitis; E78.5 Hyperlipidemia, unspecified; G47.00 Insomnia, unspecified; G89.29 Other chronic pain; E11.22 Type 2 diabetes mellitus with diabetic chronic kidney disease; I25.10 Atherosclerotic heart disease of native coronary artery without angina pectoris; E11.51 Type 2 diabetes mellitus with diabetic peripheral angiopathy without gangrene; D64.9 Anemia, unspecified; G20 Parkinson's disease; D69.6 Thrombocytopenia, unspecified; Z51.5 Encounter for palliative care; Z20.822 Contact with and (suspected) exposure to COVID-19; Z86.718 Personal history of other venous thrombosis and embolism; Z88.5 Allergy status to narcotic agent; Z79.899 Other long term (current) drug therapy; Z86.711 Personal history of pulmonary embolism; Z87.891 Personal history of nicotine dependence; Z99.2 Dependence on renal dialysis; Z89.612 Acquired absence of left leg above knee; Z89.611 Acquired absence of right leg above knee; Z23 Encounter for immunization
CPT/HCPCS: 10080; 10879; 32100; 50010; 50093; 50101; 50386; 50403; 50953; 51412; 51708; 51712; 52287; 56524; 56525; 56527; 57092; 57119; 57120; 62110; 62900; 70005